=== PATIENT | female | born 1960 | race Caucasian/White ===

== ENCOUNTER 2017-09-07 11:32 | Inpatient (IN) ==
[2017-09-07] MEDS ORDERED: Nitroglycerin 0.4 MG TAB.SUBL SL ONE (11:54)
--- NOTE | 2017-09-07 11:58 | Emergency Department Note ---
Disposition Clinical Impression: ST elevation myocardial infarction (STEMI) of anterior wall Disposition: Admitted As Inpatient Condition: Critical Time of Disposition: 12:39 General Adult HPI - General Chief complaint: ED Cardiac Arrest/CPR Stated complaint: chest pain Time Seen by Provider: 09/07/17 11:51 Source: patient Limitations: no limitations Nursing Notes Reviewed: Yes Vital Signs Reviewed: Yes - History of Present Illness HPI Narrative: Chest discomfort which has been present for the last 1 week and today started at home at 7:30 and has been constant and is still present but improved and it is not exertional but does radiate to the neck and teeth. Was seen at the cardiology office today and sent here because of concerning EKG changes. No diaphoresis or dyspnea. Does not radiate to the back. No pleuritic aspect. No pain or swelling of the lower extremities. She did have a cardiac catheterization several years ago which was negative. She denies any respiratory symptoms, blood in the urine or stool. Social history: No smoking. Family history: Positive for heart disease in parents. 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 Pain Scale: 5 - Related Data Home Medications Medication Instructions Recorded Confirmed Escitalopram [Lexapro] 10 mg PO DAILY 02/15/16 06/05/17 Insulin ASPART [Novolog] 15 unit SQ TIDAC 02/15/16 06/05/17 Insulin Glargine,Hum.rec.anlog 100 unit SQ HS 02/15/16 06/05/17 [Lantus Solostar] BuPROPion [Wellbutrin] 100 mg PO DAILY 10/30/16 06/05/17 Fenugreek Seed Extract [Fenugreek] 500 mg PO DAILY 10/30/16 06/05/17 HYDROcodone/Acet 5/325 mg [[place] 1 tab PO Q6H PRN 10/30/16 06/05/17 5-325 mg] Candesartan Cilexetil [Atacand] 8 mg PO DAILY 12/06/16 06/05/17 Empagliflozin [Jardiance] 1 tab PO QDPC 02/15/17 06/05/17 ARIPiprazole [Abilify] 5 mg PO DAILY 09/07/17 09/07/17 ARIPiprazole [Abilify] 5 mg PO DAILY 09/07/17 09/07/17 Acetaminophen/Butalbital/Caffe 1 tab PO BID PRN 09/07/17 09/07/17 [Fioricet] Buspirone HCl [Buspar] 10 mg PO DAILY 09/07/17 09/07/17 hydroCHLOROthiazide 50 mg PO DAILY 09/07/17 09/07/17 [Hydrochlorothiazide] Previous Rx's Medication Instructions Recorded Cyclobenzaprine HCl 5 mg PO TID PRN #30 tablet 02/15/16 Ibuprofen [Motrin] 600 mg PO Q6-8H PRN #30 tab 02/15/16 Allergies Allergy/AdvReac Type Severity Reaction Status Date / Time Amoxicillin [From Amoxil] Allergy Rash Verified 06/05/17 14:38 clavulanic acid Allergy Hives Verified 06/05/17 14:38 [From Augmentin] iodine Allergy Rash Verified 06/05/17 14:38 pentazocine [From Talwin] Allergy Rash Verified 06/05/17 14:38 Review of Systems: Constitutional: No fever Vision: No blurred vision ENT: No rhinorrhea Respiratory: No cough Allergic: No allergies : No blood in urine GI: No blood in stool Hematologic: No bruising Dermatologic: No skin rash Musculoskeletal: No pain in the extremities Neuro: No numbness of the extremities Past Medical History - Past Medical History Medical history: Reports: diabetes, hypertension, other Surgical history: Reports: non-contributory - Social History Smoking Status: Never smoker Smokeless Tobacco Status: No Alcohol use: Reports: unknown Drug use: Reports: none Physical Exam CONSTITUTIONAL: Well-appearing; well-nourished; A&O X 3, in no apparent distress HEAD: Normocephalic; atraumatic EYES: PERRL, no scleral icterus NOSE: The nose is normal in appearance without rhinorrhea NECK: No JVD or distended neck veins RESP: Normal chest excursion with respiration; breath sounds clear and equal bilaterally; no wheezes, rhonchi, or rales CARD: Regular rhythm, without murmurs, rub or gallop ABD: Non-distended; non-tender, soft, without rigidity, rebound or guarding,no pulsatile mass CHEST: No pain with palpation SKIN: Normal for age and race; warm and dry without diaphoresis ; no apparent lesions EXTREMITIES: Pulses are 2 plus and equal times 4 extremities, no peripheral edema or calf muscle pain - General Limitations: no limitations General appearance: alert, in no apparent distress Course Vital Signs Temperature 98.2 F 09/07/17 11:44 Pulse Rate 94 09/07/17 11:44 Respiratory Rate 16 09/07/17 11:44 Blood Pressure 173/86 09/07/17 11:44 O2 Sat by Pulse Oximetry 98 09/07/17 11:44 Temperature 98.2 F 09/07/17 11:44 Pulse Rate 96 09/07/17 12:24 Respiratory Rate 18 09/07/17 12:24 Blood Pressure 136/87 09/07/17 12:24 O2 Sat by Pulse Oximetry 98 09/07/17 12:24 Oxygen Delivery Oxygen Delivery Room Air Medical Decision Making - MDM Narrative Medical decision making narrative: I did review the EKG which does show normal sinus rhythm and evidence of anterior ST elevation as well as lateral ST elevation. I did compare the EKG from the cardiology office which showed similar findings. The rate on today's EKG in the emergency Department is 99 beats per minute. Patient does have labs ordered, nitroglycerin, she did take an aspirin today, interventional cardiology was paged. [id number] I did speak with Dr. Gamble at 12:00 and they did come down emergently to see the patient and the patient will be taken emergently to [facility] admitted to the hospital. I did start polenta as well as heparin per protocol and oxygen per their recommendations. The patient's troponin has returned and his significant elevated and I did review the other labs also. I have seen the patient on a second occasion. She is stable and is chest pain-free at this time. [id number] - Medical Records Medical records reviewed: Yes I reviewed the patient's medical records. - Lab Data Lab results reviewed: Yes I reviewed the patient's lab results. Result diagrams: 09/07/17 11:54 09/07/17 11:54 Lab Results 09/07/17 09/07/17 09/07/17 Range/Units 11:54 11:54 11:54 WBC 10.4 (4.3-11.1) K/mcL RBC 4.13 (3.82-4.97) M/mcL Hgb 11.9 (11.5-15.4) g/dL Hct 36.1 (35.3-44.9) % MCV 87.4 (83.0-100.0) fL MCH 28.8 (28.0-33.3) pg MCHC 33.0 (31.6-35.5) g/dL RDW 14.0 (11.5-14.5) % Plt Count 314 (140-400) K/mcL MPV 10.5 (9.4-12.4) fL Immature Gran % 0.5 (0-4) % Seg Neutrophils % 65.3 % Lymphocytes % 22.0 % Monocytes % 9.1 % Eosinophils % 2.6 % Basophils % 0.5 % Neutrophils # 6.8 (1.6-8.9) K/mcL Lymphocytes # 2.3 (0.6-4.6) K/mcL Monocytes # 0.9 (0.0-1.3) K/mcL Eosinophils # 0.3 (0.0-0.6) K/mcL Basophils # 0.1 (0.0-0.2) K/mcL PT 11.3 (9.4-12.1) Seconds INR 1.1 APTT 30.5 (26.0-36.0) Seconds Sodium 133 L (136-145) mEq/L Potassium 3.8 (3.5-4.5) mEq/L Chloride 96 L (98-109) mEq/L Carbon Dioxide 26 (19-29) mEq/L BUN 18 (7-20) mg/dL Creatinine 1.03 (0.57-1.11) mg/dL Est GFR ( Amer) > 60 (> 60) Est GFR (Non-Af Amer) 55 L (> 60) BUN/Creatinine Ratio 17 (6-26) Glucose 361 H (70-99) mg/dL Calculated Osmolality 292 (280-300) Calcium 9.5 (8.6-10.8) mg/dL Troponin I (0-0.03) ng/mL 09/07/17 Range/Units 11:54 WBC (4.3-11.1) K/mcL RBC (3.82-4.97) M/mcL Hgb (11.5-15.4) g/dL Hct (35.3-44.9) % MCV (83.0-100.0) fL MCH (28.0-33.3) pg MCHC (31.6-35.5) g/dL RDW (11.5-14.5) % Plt Count (140-400) K/mcL MPV (9.4-12.4) fL Immature Gran % (0-4) % Seg Neutrophils % % Lymphocytes % % Monocytes % % Eosinophils % % Basophils % % Neutrophils # (1.6-8.9) K/mcL Lymphocytes # (0.6-4.6) K/mcL Monocytes # (0.0-1.3) K/mcL Eosinophils # (0.0-0.6) K/mcL Basophils # (0.0-0.2) K/mcL PT (9.4-12.1) Seconds INR APTT (26.0-36.0) Seconds Sodium (136-145) mEq/L Potassium (3.5-4.5) mEq/L Chloride (98-109) mEq/L Carbon Dioxide (19-29) mEq/L BUN (7-20) mg/dL Creatinine (0.57-1.11) mg/dL Est GFR ( Amer) (> 60) Est GFR (Non-Af Amer) (> 60) BUN/Creatinine Ratio (6-26) Glucose (70-99) mg/dL Calculated Osmolality (280-300) Calcium (8.6-10.8) mg/dL Troponin I 12.16 H* (0-0.03) ng/mL - Radiology Data Radiology results reviewed: Yes I reviewed the patient's radiology results. Critical Care Time Critical Care Time: No
[2017-09-07 12:04] LABS: Basophils # 0.1 K/mcL (0.0-0.2); Basophils % 0.5 %; Eosinophils # 0.3 K/mcL (0.0-0.6); Eosinophils % 2.6 %; Hematocrit 36.1 % (35.3-44.9); Hemoglobin 11.9 g/dL (11.5-15.4); Immature Granulocytes % 0.5 % (0-4); Lymphocytes # 2.3 K/mcL (0.6-4.6); Mean Corpuscular Hemoglobin 28.8 pg (28.0-33.3); Mean Corpuscular Volume 87.4 fL (83.0-100.0); Mean Platelet Volume 10.5 fL (9.4-12.4); Monocytes # 0.9 K/mcL (0.0-1.3); Monocytes % 9.1 %; Neutrophils # 6.8 K/mcL (1.6-8.9); Platelet Count 314 K/mcL (140-400); Red Blood Count 4.13 M/mcL (3.82-4.97); Segmented Neutrophils % 65.3 %
[2017-09-07 12:11] LABS: INR 1.1; Prothrombin Time 11.3 Seconds (9.4-12.1)
[2017-09-07 12:14] LABS: Activated Partial Thrombo Time 30.5 Seconds (26.0-36.0)
[2017-09-07 12:17] LABS: BUN/Creatinine Ratio 17 (6-26); Blood Urea Nitrogen 18 mg/dL (7-20); Calcium 9.5 mg/dL (8.6-10.8); Carbon Dioxide 26 mEq/L (19-29); Chloride 96 mEq/L (98-109); Glucose 361 mg/dL (70-99); Osmolality,Calculated 292 (280-300); Potassium 3.8 mEq/L (3.5-4.5); Sodium 133 mEq/L (136-145); eGFR For African Americans > 60 (> 60); eGFR For Non-African Americans 55 (> 60)
[2017-09-07] MEDS ORDERED: *HR* Ticagrelor 90 MG TABLET PO ONE (12:33)
[2017-09-07] MEDS ORDERED: *HR* Heparin 5,000 UNIT/ML VIAL IVP ONE (12:34)
[2017-09-07] MEDS ORDERED: *HR* Heparin 5,000 UNIT/ML VIAL IVP PRN (12:34)
[2017-09-07] MEDS ORDERED: Heparin 25,000 UNIT/500 ML D5W 25,000 UNIT/500 ML BAG IVC SCH (12:45)
[2017-09-07] MEDS ORDERED: Heparin 1,000 UNITS/500 mL NS 500 ML ONE (12:46)
[2017-09-07] MEDS ORDERED: 0.9 % Sodium Chloride 1,000 ML ONE ×2 (12:46→13:10)
[2017-09-07] MEDS ORDERED: *HR* Heparin 10,000 UNIT/10 ML VIAL ONE (12:46)
[2017-09-07] MEDS ORDERED: Nitroglycerin 1,000 MCG/10 ML VIAL IV ONE (12:48)
--- NOTE | 2017-09-07 12:57 | Cardiology History & Physical ---
Date of Encounter: 09/07/17 Time of Encounter: 12:30 Assessment and Plan (1) Acute ID Current Visit: Yes Status: Acute Per Cardiology: Hx of abnormal nuclear stress test August 2013 with small, mild fixed mid anterior septal defect and small mild distal anterior/mid anterior lateral defects. Catheterization from September 2013 showed normal coronary angiogram with EF 55%. Presents from PCP office with CP and concerns of ECG changes. CP free currently- - s/p SL NTG. ECG reviewed with Dr. Gamble and Dr. Fair, concerning for acute ID. Trop. noted to be 12.16. lab instructor team activated for urgent LHC. Brilinta load of 180mg PO x 1 now given, Hep gtt. per ACS protocol started, and NC 2L O2 applied. Will check echo. Further recs after cath and echo. All questions answered. Patient agreeable to catheterization. CR c/s placed. The assessment and plan as outlined above was discussed with the patient and/or family members who expressed understanding and agreement. All questions were answered. Qualifiers: Myocardial infarction ST status: non-ST elevation myocardial infarction Qualified Code(s): I21.4 - Non-ST elevation (NSTEMI) myocardial infarction History of Present Illness Chief complaint: CP HPI: Ms. Aayush Kaufman is a 57 year old female with a relevant past medical history of DM 2 (she reports poorly controlled), hypertension, hyperlipidemia. Reports past history of nicotine abuse of smoking about one pack per day for 8 years, quit smoking 23 years ago. Previously seen by cardiology Dr. Priti See October 2016. Has history of abnormal nuclear stress test August 2013 with subsequent left heart catheterization September 2013 showing coronary arteries angiographically normal. Cardiology asked to evaluate patient in ER today for concerns of chest pain and ECG changes. Patient reports intermittently over the past week at rest midsternal/epigastric to chest pressure and tightness. Reports also has been having bilateral jaw pain. She reports she saw her PCP and started on pain medicine and stomach medicine with minimal improvement. Saw PCP today and sent to ER for concerns of CP and ECG changes. She reports shortness of breath at rest and with exertion remains at baseline. She does report increase in overall fatigue. Currently on exam chest pain-free-- just received 3rd SL NTG tablet. Past Med Surg Social Fam HX - Past Medical History Attestation: Yes The following information was validated with the patient. Source: patient, old records reviewed Medical history: diabetes, hypertension, other - Past Surgical History Surgical History: non-contributory - Social History Smoking Status: Former smoker Smokeless Tobacco Status: No Alcohol use: unknown Drug use: none Medications and Allergies Cyclobenzaprine HCl 5 mg PO TID PRN #30 tablet 02/15/16 [Rx] Escitalopram [Lexapro] 10 mg PO DAILY 02/15/16 [History] Ibuprofen [Motrin] 600 mg PO Q6-8H PRN #30 tab 02/15/16 [Rx] Insulin ASPART [Novolog] 15 unit SQ TIDAC 02/15/16 [History] Insulin Glargine,Hum.rec.anlog [Lantus Solostar] 80 unit SQ HS 02/15/16 [History ] BuPROPion [Wellbutrin] 100 mg PO DAILY 10/30/16 [History] Fenugreek Seed Extract [Fenugreek] 500 mg PO DAILY 10/30/16 [History] HYDROcodone/Acet 5/325 mg [[place] 5-325 mg] 1 tab PO Q6H PRN 10/30/16 [History] Candesartan Cilexetil [Atacand] 8 mg PO DAILY 12/06/16 [History] Empagliflozin [Jardiance] 1 tab PO QDPC 02/15/17 [History] ARIPiprazole [Abilify] 5 mg PO DAILY 09/07/17 [History] ARIPiprazole [Abilify] 5 mg PO DAILY 09/07/17 [History] Acetaminophen/Butalbital/Caffe [Fioricet] 1 tab PO BID PRN 09/07/17 [History] Buspirone HCl [Buspar] 10 mg PO DAILY 09/07/17 [History] hydroCHLOROthiazide [Hydrochlorothiazide] 50 mg PO DAILY 09/07/17 [History] 3 Allergy/AdvReac Type Severity Reaction Status Date / Time Amoxicillin [From Amoxil] Allergy Rash Verified 06/05/17 14:38 clavulanic acid Allergy Hives Verified 06/05/17 14:38 [From Augmentin] iodine Allergy Rash Verified 06/05/17 14:38 pentazocine [From Talwin] Allergy Rash Verified 06/05/17 14:38 All Systems Review: A 10-system review of systems was performed and is negative for pertinent findings except as documented above in the HPI. - Constitutional Constitutional: fatigue - Cardiovascular Cardiovascular: as per HPI, chest pain at rest, dyspnea at rest, dyspnea on exertion, other (bilateral jaw pain) Physical Examination Vital Signs, Last 4 Hours Temp Pulse Resp BP Pulse Ox 09/07/17 12:24 96 18 136/87 98 09/07/17 11:44 98.2 F 94 16 173/86 98 General: Conversant, No Apparent Distress HEENT: Atraumatic, Normocephaly, Mucus Membranes Moist Neck: No JVD, Normal carotid pulses Cardiac: Reg Rate and Rhythm, Normal S1 and S2, No Murmur Lungs: Normal Breath Sounds, No Wheeze, Rales, Rhonchi Neuro: Alert and responsive, No focal deficits noted Abdomen: Soft, Non-Tender, Other (obese) Skin: No rashes noted on visualized skin Musculoskeletal: No Chest Wall Tenderness Extremities: No Clubbing, No Cyanosis, No Edema, Normal Pulses Results 09/07/17 11:54 09/07/17 11:54 Lab Results Laboratory Tests 09/07/17 09/07/17 09/07/17 11:54 11:54 11:54 WBC 10.4 Hgb 11.9 Hct 36.1 Plt Count 314 INR 1.1 Creatinine 1.03 Est GFR (Non-Af Amer) 55 L Troponin I 09/07/17 11:54 WBC Hgb Hct Plt Count INR Creatinine Est GFR (Non-Af Amer) Troponin I 12.16 H* Active Medications Heparin Sodium (Porcine) (Heparin) 2,000 unit IVP Q6H PRN PRN Reason: SEE COMMENTS Stop: 03/09/18 12:35 Heparin Sodium/Dextrose (Heparin 25,000 Unit/500 Ml D5w) 25,000 unit in 500 mls @ 19.878 mls/hr IVC .Q24H CATHIE; 8.8 UNIT/KG/HR PRN Reason: Protocol Stop: 03/09/18 12:46 Last Admin: 09/07/17 12:44 Dose: 12 unit/kg/hr, 27.107 mls/hr - Imaging and Cardiology Stress Test: report reviewed Echo: pending Cardiac cath: pending, report reviewed - EKG Interpretation EKG results cardiology: personally reviewed (reviewed with Dr. Gamble and Dr. Fair)
[2017-09-07] MEDS ORDERED: *HR* Midazolam HCl 2 MG/2 ML VIAL ONE ×3 (13:09→13:58)
--- NOTE | 2017-09-07 13:13 | Pre-Sedation Evaluation ---
Pre-sedation evaluation - Pre-sedation checklist Date of procedure: 09/07/17 Recent Vitals: Last Vital Signs Temp 98.2 F 09/07/17 11:44 Pulse 96 09/07/17 12:24 Resp 18 09/07/17 12:24 BP 136/87 09/07/17 12:24 Pulse Ox 98 09/07/17 12:24 H&P (including ROS) documented in medical record: Yes Previous reaction to sedatives/anesthetics: No Dietary Status: No solid food in preceding 4 hrs and no liquid in preceding 2 hrs Airway Assessment: Patient can open mouth completely, TMJ function normal Dentition: No loose teeth or bridges Possible difficult airway: No ASA Classification *see protocol: CLASS IV-Severe systemic disease/constant threat to pt's life Plan of Care: Pt appropriate candidate for procedure/moderate/conscious sedation , Risks/benefits of procedure/sedation discussed w/ patient/family, If not NPO; Risk of intake outweiged by necessity to perform procedure
[2017-09-07] MEDS ORDERED: Naloxone 0.4 MG/ML INJ IVP PRN (13:33)
[2017-09-07] MEDS ORDERED: Acetaminophen 325 MG TABLET PO PRN (14:06)
--- NOTE | 2017-09-07 14:26 | Invasive Diagnostic Lab Proc ---
Name: Chayo Benitez Date of Study: 09/07/2017 Date: 1960 Ht: 64.2in Medical Record#: [id number] Age: 57 Wt: 248.90lb Gender: Female BSA: 2.15 Order #: [id number] BMI: 42.49 Physicians Procedure Physician: Isidoro Gamble DO Referring MD: Oumar Wood M.D. Referring MD: Staff Name Position Time In Kiersten Anderson RN Monitor 01:14 PM Lillian Gomez RT (R) Scrub 01:14 PM Alize Collins RN Dynamometer Tester 01:14 PM Indications Indication Non-Stemi Procedures Performed Procedure L HRT ARTERY/VENTRICLE ANGIO PRQ CARD OCTAVIANO STENT W/ANGIO 1 VSL Pre-Procedure Checklist Informed consent is complete signed and on chart. H&P is on chart. ID band is on and ID verified with patient. Patient NPO for procedure The procedure was described for the patient and questions were answered. Blood Pressure: 137/101 ECG is on chart. Rhythm: NSR Plan of Care Patient will tolerate the procedure without complications. Adequate level of comfort will be maintained. Hemodynamics will remain stable Patient will recover from procedure without complications. Respiratory function will be maintained. Cardiac rhythm will remain stable. Patient temperature will be maintained. Patient and/or family have verbalized understanding of the procedure. Patient Education Chief Complaint/Reason for Test: Cardiac Cath Developmental Category: Adult (18-64 years) Developmentally Appropriate for Age: Yes Learning Barriers: None Education Needs: Procedure Education Method: Verbal Information Taught: Cardiac Cath Educational Evaluation: Able to repeat information Intravenous Access Time IV Size Location DC'd Fluid/Drip Rate Units RN 01:11 PM 20g 1 1/" Patent On Arrival Lt Antecubital 0.9NaCl 25 ml/hr Alize Collins RN Allergies iodine clavulanic acid Amoxicillin pentazocine IODINE,AMOXICILLIN,AUGMENTIN Vital Signs Time BP (mmHg) HR (bpm) O2 Sat. RR (bpm) LOC 01:13 PM 137 / 101 98 100 % 15 5 = Fully awake and oriented or at pre-proc level 01:15 PM / % 5 = Fully awake and oriented or at pre-proc level 01:15 PM / % 4 = Oriented but drowsy 01:31 PM / % 4 = Oriented but drowsy 01:46 PM / % 5 = Fully awake and oriented or at pre-proc level 01:48 PM 138 / 75 91 100 % 19 01:53 PM 130 / 76 90 100 % 23 01:58 PM 134 / 82 92 100 % 15 02:03 PM 130 / 80 92 100 % 14 02:08 PM 134 / 83 93 100 % 17 01:11 PM 137 / 101 97 100 % 28 01:16 PM 57 / 32 93 100 % 18 01:18 PM 141 / 84 95 100 % 8 01:23 PM 140 / 90 93 100 % 13 01:28 PM 142 / 78 94 100 % 30 01:33 PM 128 / 79 95 100 % 23 01:38 PM 123 / 71 93 100 % 18 01:43 PM 121 / 70 90 100 % 12 02:01 PM / % 5 = Fully awake and oriented or at pre-proc level Procedural Medications Time Medication Dose Units Method Given By 01:14 PM Oxygen 2 L/min nasal cannula Alize Collins RN 01:14 PM Versed 2 mg Intravenous Alize Collins RN 01:15 PM Benadryl 50 mg Intravenous Alize Collins RN 01:20 PM Versed 1 mg Intravenous Alize Collins RN 01:21 PM Lidocaine 2% 10 ml Subcutaneous Isidoro Gamble, DO 01:27 PM Lidocaine 2% 9 ml Subcutaneous Isidoro Gamble DO 01:36 PM Versed 1 mg Intravenous Alize Collins RN 01:47 PM Heparin 3000 units Intravenous Alize Collins RN 01:52 PM Nitroglycerin 100 mcg Intracoronary Isidoro Gamble DO 01:58 PM Versed 1 mg Intravenous Alize Collins RN ASA Classification: CLASS IV- Severe systemic that is constant threat to patient's life Trey Score Preprocedure Postprocedure Activity 2- Moves 4 extremities sustained head lift Activity 2- Moves 4 extremities sustained head lift Circulation 2- SBP +/= 20 points of pre-anesthetic level Circulation 2- SBP +/= 20 points of pre-anesthetic level Consciousness 2- Awake and alert oriented x 3 Consciousness 2- Awake and alert oriented x 3 O2 Saturation 2- Able to maintain O2 satruation of 92% on room air O2 Saturation 2- Able to maintain O2 satruation of 92% on room air Respiratory 2- Able to deep breathe and cough well Respiratory 2- Able to deep breathe and cough well Total Score 10 Total Score 10 Contrast Agent: Isovue Diagnostic Contrast: 190 ml Total Contrast: 190 ml Fluoro Dose: 583 mGy Activated Clotting Time Time Seconds to Clot 01:56 PM 186 Procedure Log Time Note Enter By 01:10 PM CathStat 01:10 PM Vitals capture started with the following parameters, Patient=Adult, Interval=5 min, Initial Azcazujf=392 mmHg, Deflation Rate=5 mmHg, Cuff placed on Right Arm 01:10 PM Recorded ECG: HR=97 Condition=Condition 1 01:11 PM HR=97 bpm, TTCP=102/101 mmhg, EzU0=810.0 %, Resp=28 B/min, Comment=NSR 01:13 PM Pt arrived to soap slabber 2 at 13:13 [facility] 01:13 PM Physician arrived 13:13 01:13 PM Meet and greet completed 01:13 PM Sign in performed according to hospital policy. mm 01:13 PM Procedure start [facility]:13 [facility] Kiersten Anderson RN Position: Monitor Time in: 13:14 01:14 PM Lillian Gomez RT (R) Position: Scrub Time in: 13:14 01:14 PM Alize Collins RN Position: Dynamometer Tester Time in: 13:14 [place] 01:14 PM Patient charges- Angio tray pack, Navilyst 3mm J, Pulse Oximetry and ACIST tubing and transducer 01:14 PM Case Delayed No mm 01:14 PM Hair removed from procedure site in procedure lab using clippers. Bilateral groin prepped with Chloraprep by Lillian Gomez RT (R), safety strap applied then patient was draped. Skin intact. [place] 01:14 PM Time: 13:14 Oxygen on at 2 L/min per nasal cannula by Alize Collins RN winnie 01:15 PM Time: 13:14 Versed 2 mg Intravenous Given by Alize Collins RN :15 PM Time: 13:15 Benadryl 50 mg Intravenous Given by Alize Collins RN :15 PM Time: 13:15 Patient comfortable and pain free: Yes winnie :15 PM Time: 13:15LOC: 5 = Fully awake and oriented or at pre-proc level winnie 01:15 PM Clinical Presentation: Non-STEMI winnie 01:16 PM HR=93 bpm, NIBP=57/32 mmhg, MyM1=654.0 %, Resp=18 B/min, Comment=NSR 01:16 PM NIBP STAT measurement started. 01:17 PM Vitals capture stopped. 01:17 PM Vitals capture started with the following parameters, Patient=Adult, Interval=5 min, Initial Reknoqgd=634 mmHg, Deflation Rate=5 mmHg, Cuff placed on Right Arm 01:18 PM ASA Class CLASS IV- Severe systemic that is constant threat to patient's life tswinnie 01:18 PM HR=95 bpm, KVJY=786/84 mmhg, OiQ2=170.0 %, Resp=8 B/min, Comment=NSR 01:19 PM Pressure channel 1 zeroed. 01:20 PM Time out performed according to hospital policy winnie :21 PM Time: 13:20 Versed 1 mg Intravenous Given by Alize Collins RN winnie :21 PM Time: 13:21 10 ml Lidocaine 2% to right groin Subcutaneous Given by DO devan Pineda 01:23 PM HR=93 bpm, WJTG=608/90 mmhg, IpE5=120.0 %, Resp=13 B/min, Comment=NSR 01:24 PM Unsuccessful access attempt #10 into the right Femoral artery. Manual pressure applied to achieve hemostasis.. devan 01:25 PM Micro-Introducer Kit utilized for sheath placement winnie :27 PM Time: 13:27 9 ml Lidocaine 2% to right groin Subcutaneous Given by DO devan Pineda 01:28 PM HR=94 bpm, TMFD=833/78 mmhg, ObW8=447.0 %, Resp=30 B/min, Comment=NSR 01:31 PM Time: 13:15LOC: 4 = Oriented but drowsy tswinnie :31 PM Time: 13:15 Patient comfortable and pain free: Yes devan 01:32 PM Access obtained by percutaneous puncture. 5Fr 10cm Terumo Wooster sheath placed in right Femoral vein. [id number] devan 01:33 PM HR=95 bpm, MMLC=122/79 mmhg, IyN5=391.0 %, Resp=23 B/min, Comment=NSR 01:36 PM Time: 13:36 Versed 1 mg Intravenous Given by Alize Collins RN 01:38 PM HR=93 bpm, BVJK=231/71 mmhg, HuX7=000.0 %, Resp=18 B/min, Comment=NSR 01:40 PM Access obtained by percutaneous puncture. 6Fr 10cm Terumo Wooster sheath placed in right Femoral artery. [id number] oumm 01:40 PM 6Fr FR 4 catheter inserted over the wire [facility] 01:40 PM 0.035 145cm Navilyst 3mmJ wire [id number] oumm 01:40 PM Recorded Pressure: LV, HR=96, Condition=Condition 1 (Left Ventricle) LV 128/10/11 01:40 PM Catheter selectively placed in left ventricle tsoumm 01:40 PM Recorded Pressure: LV, Ao, HR=93, Condition=Condition 1 (Left Ventricle) LV 124/4/8, (Aorta) Ao 133/48/91 01:41 PM left ventricle hand injected tsoumm 01:41 PM Recorded Pressure: Ao, HR=93, Condition=Condition 1 (Aorta) Ao 96/68/79 01:41 PM RCA angiography performed in multiple views. mm 01:41 PM Catheter removed 01:42 PM 6Fr JL4 Runway guide catheter was used to cannulate the PCI vessel successfully. reused? No mm 01:42 PM LCA angiography performed in multiple views. mm 01:42 PM Recorded Pressure: Ao, HR=92, Condition=Condition 1 (Aorta) Ao 128/68/94 01:43 PM HR=90 bpm, ZUKW=549/70 mmhg, YjH0=072.0 %, Resp=12 B/min, Comment=NSR 01:46 PM Time: 13:31 Patient comfortable and pain free: Yes mm:46 PM Time: 13:31LOC: 4 = Oriented but drowsy tsoummers 01:46 PM Recorded Pressure: Ao, HR=93, Condition=Condition 1 (Aorta) Ao 125/71/95 01:47 PM Catheter removed :47 PM PCI Status Emergency 01:47 PM PCI Indication: PCI for high risk Non-STEMI or unstable angina :47 PM PCI lesion in Mid LAD. Pre Stenosis: 99 Pre HERBERTH Flow: 3: Complete and Brisk Flow/Perfusion :47 PM Time: 13:47 Heparin 3000 units Intravenous Given by Alize Collins RN 01:47 PM PCI lesion in Mid LAD. 01:48 PM HR=91 bpm, WWRY=315/75 mmhg, YvF1=624.0 %, Resp=19 B/min, Comment=NSR 01:48 PM .014 ChoICE PT Extra Support 300cm guide wire across target lesion- successful. reused? No :48 PM Inflation device was opened. 01:48 PM Recorded Pressure: Ao, HR=92, Condition=Condition 1 (Aorta) Ao 126/73/96 01:49 PM 3.5mm x 20mm Synergy drug-eluting stent across target lesion- successful Lot #[id number] 01:51 PM Stent deployed @ 16 clem for 21 seconds 01:52 PM Stent delivery system removed intact. 01:52 PM Time: 13:52 Nitroglycerin 100 mcg Intracoronary Given by Isidoro Gamble DO 01:53 PM HR=90 bpm, OVUX=624/76 mmhg, NaO8=072.0 %, Resp=23 B/min, Comment=NSR 01:54 PM Guide wire removed intact. 01:54 PM Recorded Pressure: Ao, HR=86, Condition=Condition 1 (Aorta) Ao 121/67/89 01:54 PM Bolus angio of right femoral hand injected 01:55 PM Guide catheter removed intact. 01:55 PM Coronary Dominance: right [facility] 01:55 PM Mid/Distal Left Anterior Descending Coronary Artery and diagonal branches with 99% stenosis. 01:56 PM Procedure completed at 13:56 01:57 PM Sign out completed: Radiation Dose 582.61 mGy Fluoro Time: 3.4 Isovue 370 - 200ml contrast ml given by Isidoro Gamble DO. Complications: NoneCardiac Rehab Consult needed: YesConfirmed administered medications: Yes oumm 01:57 PM Isovue 370 - 200ml,1 Bottle(s) used. mm 01:58 PM Time: 13:58 Versed 1 mg Intravenous Given by Alize Collins RN oumm 01:58 PM HR=92 bpm, IAAK=982/82 mmhg, FvA9=912.0 %, Resp=15 B/min, Comment=NSR 01:59 PM Lesion found in 1st Marginal. Pre Stenosis: 50 Pre HERBERTH Flow: 3: Complete and Brisk Flow/Perfusion tsoumm 01:59 PM Circumflex, Obtuse Marginal, Left Posterior Descending, and Left Posterolateral Coronary Arteries with 50 % stenosis. tsoumm 02:01 PM Time: 13:46LOC: 5 = Fully awake and oriented or at pre-proc level tsoumm 02:01 PM Time: 13:46 Patient comfortable and pain free: Yes tsoumm 02:01 PM Arterial sheath pulled, Mynx closure device used and was Successful [id number] S/N. tsoumm 02:02 PM Venous sheath pulled using manual compression and for 15 minutes by Lillian Gomez RT (R) tsoummers 02:03 PM HR=92 bpm, QRMZ=693/80 mmhg, WiS4=680.0 %, Resp=14 B/min, Comment=NSR 02:03 PM Estimated Blood Loss: minimal tsoummers 02:03 PM Post ECG NSR tsoummers 02:03 PM Post Blood Pressure 130/80 tsoummers 02:04 PM 14:04 Post Pulses Bilateral DP & PT 2+ tsoummers 02:04 PM Information taught Cardiac Cath, PCI, and Mynx tsoummers 02:05 PM Education needs Procedure, Plan of Care, and Safe & Effective Use of Medications tsoummers 02:05 PM Learning barriers :None tsoummers 02:05 PM Education Methods Verbal tsoummers 02:05 PM Site status No bleeding/hematoma - Rt Groin as reported by Lillian Gomez RT (R) at 14:05 tsoummers 02:05 PM Opsite applied tsoummers 02:08 PM HR=93 bpm, OKXZ=404/83 mmhg, OpD6=617.0 %, Resp=17 B/min, Comment=NSR 02:13 PM Report given to Debi IYER Pt taken to ICU Room #10. 14:12 tsoummers 02:16 PM Plavix, Effient or Brilinta given Yes tsoummers 02:16 PM Delay to floor No tsoummers 02:16 PM Patient out of room: 14:16 tsoummers 02:16 PM Family placed in consult room. tsoummers 02:16 PM Time: 14:01 Patient comfortable and pain free: Yes tsoummers 02:16 PM Time: 14:01LOC: 5 = Fully awake and oriented or at pre-proc level tsoummers 02:16 PM Complications: None oummers 02:17 PM Fluoro Time: 3.4 oummers 02:17 PM Isovue 370 - 200ml contrast 190 ml given by Isidoro Gamble DO. tsoummers 02:17 PM Radiation D[facility] 582.61 [facility] 02:18 PM At 13:56 the ACT was 186 seconds. [facility] Complications Complication None Hemodynamics Pressures Site Systolic/A Wave Diastolic/V Wave Mean LV 128 10 11 LV 124 4 8 AO 133 48 91 AO 96 68 79 AO 128 68 94 AO 125 71 95 AO 126 73 96 AO 121 67 89 Post Procedure Information Blood Pressure: 130/80 mmHg Rhythm: NSR Post procedural instructions were given Closure Device Time Device Success/Fail 09/07/2017 2:07:00 PM MynxGrip Successful Site Checks Time Location Status Staff Sheath In? Note 02:05 PM Rt Groin No bleeding/hematoma Lillian Gomez RT (R) Pulses Time Site Pre-Procedure Post-Procedure Note 09/07/2017 1:13:00 PM Bilateral DP & PT 2+ 2:04:00 PM Bilateral DP & PT 2+ Updated by Alize Collins RN on 09/07/2017 2:20:24 PM electronically signed on 09/07/2017 2:21:36 PM with status of Final
[2017-09-07] MEDS: Aspirin 81 MG TAB.CHEW PO SCH (15:28)
--- NOTE | 2017-09-07 16:51 | Electrocardiograph Report ---
[address] [place], [place] [address] Test Date: 2017-09-07 Pat Name: Chayo Looney [facility] Department: 103 Room: 10 Gender: F Manager Disaster Recovery: AMY : 1960 Requested By: Alden Lima Order Number: [id number] Reading MD: Marietta Block Measurements Intervals [place] Rate: 99 P: 54 TN: 167 QRS: -41 QRSD: 87 T: 65 QT: 318 QTc: 374 Interpretive Statements SINUS RHYTHM LEFT AXIS DEVIATION MODERATE VOLTAGE CRITERIA FOR LVH, CONSIDER NORMAL VARIANT POSSIBLE RECENT ANTEROSEPTAL MYOCARDIAL INFARCTION [40+ ms Q WAVE IN V1-V4], POSSIBLY ACUTE ACUTE DE Electronically Signed On 09-07-2017 16:49:33 EST by Marietta Block
[2017-09-07] MEDS ORDERED: Perflutren Lipid Microsphere 1.3 ML in 0.9 % Sodium Chloride 8.7 ML IVP ONE (18:50)
[2017-09-07] MEDS ORDERED: Perflutren Lipid Microsphere 2 ML VIAL ONE (18:53)
[2017-09-07] MEDS: 0.9 % Sodium Chloride 1,000 ML IVC SCH (20:11)
[2017-09-07] MEDS: *HR* Ticagrelor 90 MG TABLET PO SCH (20:58)
[2017-09-07] MEDS: Insulin LISPRO 300 UNITS/3 ML VIAL SQ SCH (20:58)
[2017-09-07] MEDS: *HR* HYDROcodone/Acet 5/325 mg TABLET PO PRN (22:36)
[2017-09-08] MEDS: 0.9 % Sodium Chloride 1,000 ML IVC SCH (05:56)
[2017-09-08 06:21] LABS: BUN/Creatinine Ratio 20 (6-26); Blood Urea Nitrogen 12 mg/dL (7-20); Calcium 8.8 mg/dL (8.6-10.8); Carbon Dioxide 25 mEq/L (19-29); Chloride 105 mEq/L (98-109); Glucose 195 mg/dL (70-99); Osmolality,Calculated 289 (280-300); Potassium 3.9 mEq/L (3.5-4.5); Sodium 137 mEq/L (136-145); eGFR For African Americans > 60 (> 60); eGFR For Non-African Americans > 60 (> 60)
[2017-09-08 06:33] LABS: Basophils % 0.3 %; Eosinophils # 0.3 K/mcL (0.0-0.6); Eosinophils % 3.2 %; Hematocrit 34.2 % (35.3-44.9); Hemoglobin 10.9 g/dL (11.5-15.4); Immature Granulocytes % 0.2 % (0-4); Lymphocytes # 2.2 K/mcL (0.6-4.6); Lymphocytes % 23.2 %; Mean Corpuscular HGB Conc 31.9 g/dL (31.6-35.5); Mean Corpuscular Hemoglobin 28.5 pg (28.0-33.3); Mean Corpuscular Volume 89.5 fL (83.0-100.0); Mean Platelet Volume 10.6 fL (9.4-12.4); Monocytes # 0.9 K/mcL (0.0-1.3); Monocytes % 9.2 %; Platelet Count 267 K/mcL (140-400); Red Blood Count 3.82 M/mcL (3.82-4.97); Red Cell Distribution Width 14.2 % (11.5-14.5); Segmented Neutrophils % 63.9 %
--- NOTE | 2017-09-08 08:28 | Pulmonology Consult Note ---
Date of Encounter: 09/08/17 Time of Encounter: 08:15 Assessment and Plan (1) ST elevation myocardial infarction (STEMI) of anterior wall Current Visit: Yes Status: Acute Patient denies any significant chest pain and successful intervention (2) Sleep apnea, unspecified Current Visit: Yes Status: Suspected Patient has multiple comorbidities and I suspect highly she has sleep disorder breathing and explained to her that I will order sleep study that can be done as outpatient and can follow up after that as outpatient.. Qualifiers: Sleep apnea type: unspecified type Qualified Code(s): G47.30 - Sleep apnea , unspecified (3) DM type 2 (diabetes mellitus, type 2) Current Visit: Yes Status: Chronic Patient is not controlled and she is on sliding scale insulin I will add a basal insulin and check hemoglobin A1c. She will be transferred to the floor and can be followed up by the hospitalist. Thanks for the consultation Qualifiers: Diabetes mellitus complication status: with unspecified complications Diabetes mellitus long-term insulin use: unspecified intermodal dispatcher insulin use status Qualified Code(s): E11.8 - Type 2 diabetes mellitus with unspecified complications History of Present Illness Consult date: 09/08/17 Requesting physician: Isidoro Gamble Reason for consult: other (Critical care management) Chief complaint: Chest pain History of present illness: This is a very pleasant 57-year-old female with history of type 2 diabetes, hypertension, hyperlipidemia presented to the hospital with the chest pain and was found to have acute coronary syndrome after intervention patient was admitted to the ICU. Patient also has history of smoking and she is never tested for sleep disorder breathing, however she has significant history of snoring and not sure about witnessed apnea and she reports fatigue. At this time she denies any chest pain, no cough and denies any wheezing. Patient has history of dyspnea on exertion. She denies any fever or chills. Past Med Surg Social Fam HX - Past Medical History Medical history: diabetes, hypertension, kidney stones, other Psychiatric history: anxiety - Past Surgical History Surgical History: cholecystectomy, sinus surgery, bariatric surgery - Social History Smoking Status: Former smoker Smokeless Tobacco Status: No Alcohol use: unknown Drug use: none - Family History Mother Living Status: Still Living Hx Family Cardiac Disorders: Yes Medications and Allergies Cyclobenzaprine HCl 5 mg PO TID PRN #30 tablet 02/15/16 [Rx] Escitalopram [Lexapro] 10 mg PO DAILY 02/15/16 [History] Ibuprofen [Motrin] 600 mg PO Q6-8H PRN #30 tab 02/15/16 [Rx] Insulin ASPART [Novolog] 15 unit SQ TIDAC 02/15/16 [History] Insulin Glargine,Hum.rec.anlog [Lantus Solostar] 80 unit SQ HS 02/15/16 [History ] BuPROPion [Wellbutrin] 100 mg PO DAILY 10/30/16 [History] Fenugreek Seed Extract [Fenugreek] 500 mg PO DAILY 10/30/16 [History] HYDROcodone/Acet 5/325 mg [Terril 5-325 mg] 1 tab PO Q6H PRN 10/30/16 [History] Candesartan Cilexetil [Atacand] 4 mg PO DAILY 12/06/16 [History] Empagliflozin [Jardiance] 1 tab PO QDPC 02/15/17 [History] ARIPiprazole [Abilify] 5 mg PO DAILY 09/07/17 [History] ARIPiprazole [Abilify] 5 mg PO DAILY 09/07/17 [History] Acetaminophen/Butalbital/Caffe [Fioricet] 1 tab PO BID PRN 09/07/17 [History] Buspirone HCl [Buspar] 10 mg PO DAILY 09/07/17 [History] hydroCHLOROthiazide [Hydrochlorothiazide] 50 mg PO DAILY 09/07/17 [History] 3 Allergy/AdvReac Type Severity Reaction Status Date / Time Amoxicillin [From Amoxil] Allergy Rash Verified 06/05/17 14:38 clavulanic acid Allergy Hives Verified 06/05/17 14:38 [From Augmentin] iodine Allergy Rash Verified 06/05/17 14:38 pentazocine [From Talwin] Allergy Rash Verified 06/05/17 14:38 All Systems: A 10-system review of systems was performed and is negative for pertinent findings except as documented above in the HPI. Physical Examination Vital Signs: Vital Signs, Last 4 Hours Temp Pulse Resp BP Pulse Ox 09/08/17 07:54 98.0 F 09/08/17 06:00 89 18 136/81 98 09/08/17 05:00 85 18 148/80 98 General appearance: no acute distress ENT: oropharynx moist Mallampati (class): 4 Neck: supple Effort: normal Inspection: normal Auscultation: bilateral: clear Percussion: bilateral: not dull Cardiovascular: regular rate and rhythm Gastrointestinal: normoactive bowel sounds Extremities: no cyanosis normal mental status, non-focal exam mood appropriate Results - Laboratory Findings CBC and BMP: 09/08/17 05:53 09/08/17 05:53 PT/INR, D-dimer PT 11.3 Seconds (9.4-12.1) 09/07/17 11:54 Abnormal lab findings: Abnormal lab results Hgb 10.9 g/dL (11.5-15.4) L 09/08/17 05:53 Hct 34.2 % (35.3-44.9) L 09/08/17 05:53 Glucose 195 mg/dL (70-99) H 09/08/17 05:53 POC Glucose 179 (58-89) H 09/08/17 07:44 Troponin I 12.16 ng/mL (0-0.03) H* 09/07/17 11:54 - Clinical Findings Intake & Output: Intake & Output 09/07/17 09/08/17 09/08/17 23:59 07:59 15:59 Intake Total 120 / 120 1000 / 1000 Output Total 500 / 500 0 / 0 Balance -380 / -380 1000 / 1000 Weight 113.8 kg Consult Discharge Plan - Plan Referrals: Oumar Wood MD [Primary Care Provider] -
[2017-09-08] MEDS: *HR* Ticagrelor 90 MG TABLET PO SCH ×2 (08:52→20:09)
[2017-09-08] MEDS: Aspirin 81 MG TAB.CHEW PO SCH (08:52)
[2017-09-08] MEDS: Famotidine 20 MG TABLET PO SCH ×2 (08:52→17:12)
[2017-09-08] MEDS: Insulin LISPRO 300 UNITS/3 ML VIAL SQ SCH ×6 (08:53→20:09)
[2017-09-08 09:46] LABS: Hemoglobin A1C 9.4 %
[2017-09-08] MEDS ORDERED: Acetaminophen/Butalbital/CaffeineTABLET PO PRN (09:55)
[2017-09-08] MEDS: ARIPiprazole 5 MG TABLET PO SCH (11:11)
[2017-09-08] MEDS: EMPAGLIFLOZIN PO SCH (11:12)
[2017-09-08] MEDS: CANDESARTAN CILEXETIL 4 MG PO SCH (11:12)
--- NOTE | 2017-09-08 12:10 | Cardiology Progress Note ---
Date of Encounter: 09/08/17 Time of Encounter: 10:00 Assessment and Plan (1) ST elevation myocardial infarction (STEMI) of anterior wall Current Visit: Yes Status: Acute S/p acute OR 09/08/17. LHC showed 99% stenosis in the Mid LAD. S/p PTCA and OCTAVIANO to mLAD with good results. 50% stenosis in the 1st Marginal remaining. EF 35%. There was no complication from the procedure. Importance of DAPT with asa and brilinta uninterrupted for minimum of one year reviewed with patient and she voiced understanding. Continue statin and bb. Right groin with excoriation noted. No hematoma or redness. Mild ecchymosis. Dry dressing reapplied for excoriation. Instructed to keep dry and clean. Activity restrictions reviewed. No driving for one week. No heavy lifting over 10 lbs. Phase one cardiac rehab ordered. (2) Cardiomyopathy Current Visit: Yes Status: Acute Acute systolic CHF. EF 35%. Currently euvolemic. On post procedure IV fluid. I will d/c. Continue bb and arb. CHF education reviewed. Low sodium diet and daily weights Qualifiers: Cardiomyopathy type: ischemic Qualified Code(s): I25.5 - Ischemic cardiomyopathy (3) Suspected sleep apnea Current Visit: Yes Status: Acute BOUCHRA suspected by pulmonology. Sleep study recommended in out pt setting. Appreciate input. (4) DM type 2 (diabetes mellitus, type 2) Current Visit: Yes Status: Chronic Continue home medications including insulin. Qualifiers: Diabetes mellitus complication status: with unspecified complications Diabetes mellitus residential insulin use: unspecified residential insulin use status Qualified Code(s): E11.8 - Type 2 diabetes mellitus with unspecified complications Discussion w patient/family: The assessment and plan as outlined above was discussed with the patient and/or family members who expressed understanding and agreement. All questions were answered. Thank you for involving us in the care of your patient. Please call with any questions. Subjective Principal diagnosis: STEMI Interval history: S/p PCI. Denies recurrent chest pain. Denies problems with her right groin access site. Objective Vital Signs, Last 4 Hours Temp Pulse Resp BP Pulse Ox 09/08/17 11:40 99.6 F 86 16 149/71 100 09/08/17 09:34 98.1 F 93 16 121/75 97 General: Conversant, No Apparent Distress HEENT: Atraumatic, Normocephaly, Mucus Membranes Moist Neck: No JVD, Normal carotid pulses Cardiac: Reg Rate and Rhythm, Normal S1 and S2, No Murmur Lungs: Normal Breath Sounds, No Wheeze, Rales, Rhonchi Neuro: Alert and responsive, No focal deficits noted Abdomen: Soft, Non-Tender Skin: No rashes noted on visualized skin Musculoskeletal: No Chest Wall Tenderness Extremities: No Clubbing, No Cyanosis, No Edema, Normal Pulses, Other (No hematoma, mild excoration noted in right groin. Mild ecchymosis. ) Results 09/08/17 05:53 09/08/17 05:53 Lab Results 09/08/17 09/08/17 05:53 05:53 WBC 9.4 Hgb 10.9 L Hct 34.2 L Plt Count 267 Sodium 137 Potassium 3.9 Chloride 105 Carbon Dioxide 25 BUN 12 Creatinine 0.60 Glucose 195 H Calcium 8.8 - Imaging and Cardiology Echo: report reviewed - EKG Interpretation EKG results cardiology: personally reviewed - VTE Reasons for not Prescribing Prophylaxis: Not indicated-Anticoagulated or INR therapeutic Consult Discharge Plan - Plan Referrals: Oumar Wood MD [Primary Care Provider] -
[2017-09-08] MEDS: *HR* HYDROcodone/Acet 5/325 mg TABLET PO PRN ×2 (13:53→20:21)
[2017-09-08] MEDS ORDERED: Insulin DETEMIR 100 UNIT/ML X5UNITS SQ SCH ×2 (21:00)
--- NOTE | 2017-09-09 07:00 | Discharge Summary ---
Date of Encounter: 09/09/17 Time of Encounter: 06:55 - Discharge Diagnosis (1) Acute [place] Priority: Primary Status: Acute Comments: Presented with CP, ECG changes, Troponin above 12, acute [place]. Qualifiers: Myocardial infarction ST status: non-ST elevation myocardial infarction Qualified Code(s): I21.4 - Non-ST elevation (NSTEMI) myocardial infarction - Discharge Medications Prescriptions: Atorvastatin [Lipitor] 40 mg PO HS #30 tablet Carvedilol [Coreg] 3.125 mg PO BIDWM #60 tablet Nitroglycerin 0.4 mg SL PRN PRN #30 tab.subl PRN Reason: chest pain Ticagrelor [Brilinta] 90 mg PO BID #60 tablet Home Medications: Cyclobenzaprine HCl 5 mg PO TID PRN #30 tablet 02/15/16 [Rx] Escitalopram [Lexapro] 10 mg PO DAILY 02/15/16 [History] Insulin ASPART [Novolog] 15 unit SQ TIDAC 02/15/16 [History] Insulin Glargine,Hum.rec.anlog [Lantus Solostar] 80 unit SQ HS 02/15/16 [History ] BuPROPion [Wellbutrin] 100 mg PO DAILY 10/30/16 [History] Fenugreek Seed Extract [Fenugreek] 500 mg PO DAILY 10/30/16 [History] HYDROcodone/Acet 5/325 mg [[place] 5-325 mg] 1 tab PO Q6H PRN 10/30/16 [History] Candesartan Cilexetil [Atacand] 4 mg PO DAILY 12/06/16 [History] Empagliflozin [Jardiance] 1 tab PO QDPC 02/15/17 [History] ARIPiprazole [Abilify] 5 mg PO DAILY 09/07/17 [History] ARIPiprazole [Abilify] 5 mg PO DAILY 09/07/17 [History] Acetaminophen/Butalbital/Caffe [Fioricet] 1 tab PO BID PRN 09/07/17 [History] Buspirone HCl [Buspar] 10 mg PO DAILY 09/07/17 [History] Aspirin 81 mg PO DAILY tab.chew 09/09/17 [Rx] Atorvastatin [Lipitor] 40 mg PO HS #30 tablet 09/09/17 [Rx] Carvedilol [Coreg] 3.125 mg PO BIDWM #60 tablet 09/09/17 [Rx] Nitroglycerin 0.4 mg SL PRN PRN #30 tab.subl 09/09/17 [Rx] Ticagrelor [Brilinta] 90 mg PO BID #60 tablet 09/09/17 [Rx] Allergies/Adverse Reactions: 3 Allergy/AdvReac Type Severity Reaction Status Date / Time Amoxicillin [From Amoxil] Allergy Rash Verified 06/05/17 14:38 clavulanic acid Allergy Hives Verified 06/05/17 14:38 [From Augmentin] iodine Allergy Rash Verified 06/05/17 14:38 pentazocine [From Talwin] Allergy Rash Verified 06/05/17 14:38 Procedures/tests Complete & Pending: Procedures Performed prior 72 hours Category Date Time Status CL Cardiac Catheterization [CL] Routine [facility] [employer]man 09/07/17 12:55 Completed ECG 12 lead ECG [ECG] AM 0600 Y 09/08/17 06:00 Ordered EV echocardiogram w enhance Routine Y 09/07/17 13:30 Completed Date of admission: 09/07/17 12:54 Primary care physician: Oumar Wood MD Consults: 09/07/17 13:30 Consult to Cardiac Rehabilitation-Phase1 [CONS] Routine Comment: Reason for Consult: [place] Call Completed: No 09/07/17 17:57 Consult to Critical Care [CONS] Routine Consulting Provider: [facility] & Elaine Avitia Reason for Consult: medical management Call Completed: No Discharging clinician: Hermann Quintanilla Anticipated date of discharge: 09/09/17 - Patient Status Disposition: Home, Self-Care Condition: Fair Overall status at discharge: patient is progressing back to baseline - Discharge Instructions Follow Up With: Oumar Wood MD [Primary Care Provider] - Additional Instructions: No driving for one week. No heavy lifting over 10 lbs keep groin clean and dry reapply dressing as needed - Diet and Activity Activity: other Diet: diabetic diet, low fat, low cholesterol, low salt diet - Hospital Course Hospital course: Ms. Aayush Kaufman is a 57 year old female presented with chest pain, ECG changes, troponin elevation, acute [place] taken urgently to catheterization lab with catheterization showing EF 35% and status post PTCA/drug-eluting stent to mid LAD 99% lesion, otherwise normal coronary angiogram. Echo showed: Impressions: LVEF 40%. Mild concentric left ventricular hypertrophy. Moderate segmental left ventricular systolic dysfunction. Mild left ventricular diastolic dysfunction. Normal right ventricular structure and function. No evidence of a PFO with agitated saline contrast. No evidence of pulmonary hypertension. Suboptimal study due to tachycardia, image quality. Prepping for discharge home today in stable condition. Education provided post catheterization management. Patient encouraged to not discontinue aspirin or Brilinta for at least one year unless directed by cardiology. All questions answered. - Time Spent with Patient Total time spent providing and/or coordinating discharge services: Less than 30 minutes Physical Examination Vital Signs, Last 4 Hours Temp Pulse Resp BP Pulse Ox 09/09/17 04:30 98.6 F 88 18 130/74 94 General: Conversant, No Apparent Distress HEENT: Atraumatic, Normocephaly, Mucus Membranes Moist Neck: No JVD, Normal carotid pulses Cardiac: Reg Rate and Rhythm, Normal S1 and S2, No Murmur Lungs: Normal Breath Sounds, No Wheeze, Rales, Rhonchi Neuro: Alert and responsive, No focal deficits noted Abdomen: Soft, Non-Tender Skin: No rashes noted on visualized skin, Other (Right groin site with mild to moderate ecchymosis, no bleeding, no hematoma, right DP and PT pulses 1+ palpable) Musculoskeletal: No Chest Wall Tenderness Extremities: No Clubbing, No Cyanosis, No Edema, Normal Pulses - VTE Reasons for not Prescribing Prophylaxis: Not indicated-Anticoagulated or INR therapeutic
[2017-09-09 07:11] VITALS: BP 132/74
[2017-09-09] MEDS: Insulin LISPRO 300 UNITS/3 ML VIAL SQ SCH ×2 (08:16)
[2017-09-09] MEDS: Aspirin 81 MG TAB.CHEW PO SCH (08:17)
[2017-09-09] MEDS: ARIPiprazole 5 MG TABLET PO SCH (08:17)
[2017-09-09] MEDS: *HR* Ticagrelor 90 MG TABLET PO SCH (08:17)
[2017-09-09] MEDS: Famotidine 20 MG TABLET PO SCH (08:18)
[2017-09-09] MEDS: EMPAGLIFLOZIN PO SCH (08:18)
[2017-09-09] MEDS: CANDESARTAN CILEXETIL 4 MG PO SCH (08:18)
== END 2017-09-09 09:52 | disposition home or self-care (01) | DRG 246 ==
LOC: EMEROO 11:32 → ICNU 12:54 → 2NNU 09-08 09:35
PROVIDERS: ADMIT Internal Medicine Cardiovascular Disease; ATTEND Internal Medicine Cardiovascular Disease

== ENCOUNTER 2018-01-02 09:25 | Observation (INO) ==
[2018-01-02] MEDS ORDERED: Nitroglycerin 0.4 MG TAB.SUBL SL PRN (09:54)
[2018-01-02] MEDS ORDERED: Aspirin 81 MG TAB.CHEW PO STA (09:54)
--- NOTE | 2018-01-02 09:58 | Emergency Department Note ---
Disposition Clinical Impression: Left leg swelling Chest pain Qualifiers: Chest pain type: unspecified Qualified Code(s): R07.9 - Chest pain, unspecified Disposition: Admitted As Inpatient Condition: Fair Referrals: Oumar Wood MD [Primary Care Provider] - Forms: ED Satisfaction Letter Time of Disposition: 14:59 General Adult HPI - General Chief complaint: ED Back Pain/Injury Stated complaint: back pain Time Seen by Provider: 01/02/18 09:35 Source: patient Limitations: no limitations Nursing Notes Reviewed: Yes Vital Signs Reviewed: Yes - History of Present Illness HPI Narrative: Patient is a 57-year-old female complains of left thoracic back pain that started 12 hours ago that sharp piercing in character that is also causing pain on the anterior chest. Patient states pain symptoms are worse with touching. His pain is constant and has nausea without vomiting with it as well. There is no radiation of pain symptoms. Patient states she has also has diaphoresis. Patient states she tried to nitroglycerin and had no effect on her pain. Patient was concerned that may be this was musculoskeletal in nature but she had this exact same symptoms when she had her heart attack back in August 2017. Patient called her PCP and was directed to come to the ED immediately. Pain Scale: 7 - Related Data Home Medications Medication Instructions Recorded Confirmed Escitalopram [Lexapro] 10 mg PO DAILY 02/15/16 01/02/18 Insulin ASPART [Novolog] 15 unit SQ TIDAC 02/15/16 01/02/18 BuPROPion [Wellbutrin] 100 mg PO DAILY 10/30/16 01/02/18 Fenugreek Seed Extract [Fenugreek] 500 mg PO DAILY 10/30/16 01/02/18 HYDROcodone/Acet 5/325 mg [[place] 1 tab PO Q6H PRN 10/30/16 01/02/18 5-325 mg] Candesartan Cilexetil [Atacand] 4 mg PO DAILY 12/06/16 01/02/18 Clopidogrel [Plavix] 75 mg PO DAILY 10/09/17 01/02/18 Empagliflozin [Jardiance] 20 mg PO DAILY 10/09/17 01/02/18 Fluconazole [Diflucan] 50 mg PO PRN PRN 10/09/17 01/02/18 Insulin Glargine,Hum.rec.anlog 55 - 70 unit SQ HS 10/09/17 01/02/18 [Basaglar Kwikpen U-100] Iron Fum,Ps No.1/Vit C/L.casei 1 each PO DAILY 10/09/17 01/02/18 [Fusion Capsule] valACYclovir [Valtrex] 500 mg PO DAILY PRN 10/09/17 01/02/18 Furosemide [Lasix] 20 mg PO DAILY 10/22/17 01/02/18 Carvedilol 1.56 mg PO BID 01/02/18 01/02/18 Nitroglycerin 0.4 mg SL Q5M PRN 01/02/18 01/02/18 Previous Rx's Medication Instructions Recorded Cyclobenzaprine HCl 5 mg PO TID PRN #30 tablet 02/15/16 Aspirin 81 mg PO DAILY tab.chew 09/09/17 Atorvastatin [Lipitor] 40 mg PO HS #30 tablet 09/09/17 Allergies Allergy/AdvReac Type Severity Reaction Status Date / Time Amoxicillin [From Amoxil] Allergy Rash Verified 01/02/18 12:48 clavulanic acid Allergy Hives Verified 01/02/18 12:48 [From Augmentin] iodine Allergy Rash Verified 01/02/18 12:48 pentazocine [From Talwin] Allergy Rash Verified 01/02/18 12:48 All systems ED: reviewed and negative except as stated. Review of Systems: As Per HPI Constitutional: Reports: chills. Denies: fever, weakness ENT ED: Denies: congestion Past Medical History - Past Medical History Medical history: Reports: arthritis, CHF, coronary artery disease, diabetes, fibromyalgia, GERD, glaucoma, hyperlipidemia, hypertension, kidney stones, liver disease, migraine, myocardial infarction, other Surgical history: Reports: cholecystectomy, sinus surgery, bariatric surgery Psychiatric history: Reports: anxiety - Social History Smoking Status: Former smoker Smokeless Tobacco Status: No Alcohol use: Reports: unknown Drug use: Reports: none Physical Exam - General Limitations: no limitations General appearance: alert, in no apparent distress Course - Reevaluation(s) Reevaluation #1: 03/03 LLE doppler ordered Time: 10:37 Reevaluation #2: Patient is doing well presently. Pain symptoms 11/03. Patient will receive one more nitroglycerin sublingually. Patient's d-dimer was elevated and will be sent for CTA of his chest. Patient's troponin was negative. Time: 11:40 Reevaluation #3: Patient was negative for DVT in the left lower extremity. Patient is awaiting CTA. Patient requires premedication of 50 mg Benadryl, and also received 40 mg of Pepcid and 125 of Solu-Medrol IV Time: 12:51 - Consultations Consultation #1: Dr. Finnegan the hospitalist as accepted patient for admission Time: 13:42 Vital Signs Temperature 97.9 F 01/02/18 09:26 Pulse Rate 76 01/02/18 09:26 Respiratory Rate 18 01/02/18 09:26 Blood Pressure 165/82 01/02/18 09:26 O2 Sat by Pulse Oximetry 99 01/02/18 09:26 Temperature 97.9 F 01/02/18 09:26 Pulse Rate 77 01/02/18 12:49 Respiratory Rate 12 01/02/18 12:49 Blood Pressure 156/79 01/02/18 12:49 O2 Sat by Pulse Oximetry 96 01/02/18 12:49 Oxygen Delivery Oxygen Delivery Room Air Medical Decision Making - [facility] Narrative Medical decision making narrative: Patient with chest pain that appears to be her anginal equivalent also has left lower extremity swelling that is new over the past 3 days with left knee pain. Patient is concerning for ACS/IN, PE. Patient does show clinical signs of DVT and is considered at moderate risk for PE under Wells criteria because of her left lower extremity edema with knee pain. Currently doubt Aortic dissection because patient does not have any tearing pain from front to back, no pulse deficits, no mediastinal widening or obscuration of aortic knob on chest x-ray. Patient's pain has been brought under control with sublingual nitroglycerin. Patient's workup was negative for any abnormalities on her chest x-ray, no abnormalities on CBC, or BMP ordered clinically relevant. Faheem and has a negative troponin. Patient's d-dimer did come back elevated at 840, and patient was sent for CTA of chest. Because patient has a history of contrast- induced reaction that after pretreatment with Benadryl pre-treatment last time she had a CT due to her iodine allergy patient requires pretreatment here today. Patient was given IV Benadryl 50 mg, 40 mg of IV Pepcid, and 125 of Solu -Medrol IV. Patient will need to wait 8 hours after administration before she can get up for CTA to assess for PE and or aortic dissection given patient's pain pattern. Patient was accepted for admission, but accepting physician Dr. Finnegan the hospitalist would like a VQ scan now to decrease suspicion of PE so patient can either start or hold off from anticoagulation. Patient had a VQ scan which was low probability for PE. Patient will receive CTA chest for aortic dissection assessment. Patient understands and agrees to treatment and plan for admission and is currently in stable condition with 0 pain. - Lab Data Lab results reviewed: Yes I reviewed the patient's lab results. Lab results narrative: Short CBC 01/02/18 Range/Units 09:54 WBC 9.3 (4.3-11.1) K/mcL Hgb 11.4 L (11.5-15.4) g/dL Hct 36.2 (35.3-44.9) % Plt Count 221 (140-400) K/mcL Neutrophils # 6.6 (1.6-8.9) K/mcL BMP 01/02/18 Range/Units 09:54 Sodium 139 (136-145) mEq/L Potassium 4.0 (3.5-5.1) mEq/L Chloride 107 (98-107) mEq/L Carbon Dioxide 23 (23-29) mEq/L BUN 15 (6-20) mg/dL Creatinine 0.64 (0.60-1.20) mg/dL Glucose 149 H (70-105) mg/dL Calcium 9.3 (8.6-10.3) mg/dL Cardiac Enzymes 01/02/18 Range/Units 09:54 Troponin I < 0.03 (< 0.04) ng/mL Result diagrams: 01/02/18 09:54 01/02/18 09:54 Lab Results 01/02/18 01/02/18 01/02/18 Range/Units 09:54 09:54 09:54 WBC 9.3 (4.3-11.1) K/mcL RBC 4.13 (3.82-4.97) M/mcL Hgb 11.4 L (11.5-15.4) g/dL Hct 36.2 (35.3-44.9) % MCV 87.7 (83.0-100.0) fL MCH 27.6 L (28.0-33.3) pg MCHC 31.5 L (31.6-35.5) g/dL RDW 14.8 H (11.5-14.5) % Plt Count 221 (140-400) K/mcL MPV 10.3 (9.4-12.4) fL Immature Gran % 0.2 (0-4) % Seg Neutrophils % 71.1 % Lymphocytes % 19.9 % Monocytes % 6.2 % Eosinophils % 2.3 % Basophils % 0.3 % Neutrophils # 6.6 (1.6-8.9) K/mcL Lymphocytes # 1.9 (0.6-4.6) K/mcL Monocytes # 0.6 (0.0-1.3) K/mcL Eosinophils # 0.2 (0.0-0.6) K/mcL Basophils # 0.0 (0.0-0.2) K/mcL D-Dimer 820 H (0-500) ng/mLFEU Sodium 139 (136-145) mEq/L Potassium 4.0 (3.5-5.1) mEq/L Chloride 107 (98-107) mEq/L Carbon Dioxide 23 (23-29) mEq/L BUN 15 (6-20) mg/dL Creatinine 0.64 (0.60-1.20) mg/dL Est GFR ( Amer) > 60 (> 60) Est GFR (Non-Af Amer) > 60 (> 60) BUN/Creatinine Ratio 23 (6-26) Glucose 149 H (70-105) mg/dL Calculated Osmolality 292 (280-300) Calcium 9.3 (8.6-10.3) mg/dL Troponin I < 0.03 (< 0.04) ng/mL - Radiology Data Radiology results reviewed: Yes I reviewed the patient's radiology results. Chest X-Ray 01/02/18 09:36 IMPRESSION: No acute process. D/ / Sam Quintanilla MD / Sam Quintanilla MD Interpreting Provider: Sam Quintanilla MD Pulmonary Perfusion Imaging 01/02/18 13:23 IMPRESSION: Low Probability for Pulmonary Embolus. D/ / Shaggy Huizar MD / Shaggy Huizar MD Interpreting Provider: Shaggy Huizar MD - EKG Data EKG #1 EKG attestation: Yes I reviewed and interpreted this EKG. EKG results narrative: EKG taken 01/02/2018@0931 hrs. shows sinus rhythm at a rate of 75 beats minute. No acute ST elevations or depressions in any leads, no QRS widening or QT prolongation. No Brugada, Wellens, WPW. Today's EKG looks better than previous EKG taken on 09/07/[address] elevation in lead 1, V2, V3, V4.
--- NOTE | 2018-01-02 10:35 | Emergency Department Note ---
Disposition Clinical Impression: Left leg swelling Disposition: Still a Patient Forms: ED Satisfaction Letter General Adult HPI - General Chief complaint: ED Back Pain/Injury Stated complaint: back pain Time Seen by Provider: 01/02/18 09:35 Source: patient Limitations: no limitations - History of Present Illness Pain Scale: 7 - Related Data Home Medications Medication Instructions Recorded Confirmed Escitalopram [Lexapro] 10 mg PO DAILY 02/15/16 12/04/17 Insulin ASPART [Novolog] 15 unit SQ TIDAC 02/15/16 12/04/17 BuPROPion [Wellbutrin] 100 mg PO DAILY 10/30/16 12/04/17 Fenugreek Seed Extract [Fenugreek] 500 mg PO DAILY 10/30/16 12/04/17 HYDROcodone/Acet 5/325 mg [[place] 1 tab PO Q6H PRN 10/30/16 12/04/17 5-325 mg] Candesartan Cilexetil [Atacand] 4 mg PO DAILY 12/06/16 12/04/17 Clopidogrel [Plavix] 75 mg PO DAILY 10/09/17 12/04/17 Empagliflozin [Jardiance] 20 mg PO DAILY 10/09/17 12/04/17 Fluconazole [Diflucan] 50 mg PO PRN PRN 10/09/17 12/04/17 Insulin Glargine,Hum.rec.anlog 55 - 70 unit SQ HS 10/09/17 12/04/17 [Basaglar Kwikpen U-100] Iron Fum,Ps No.1/Vit C/L.casei 1 each PO DAILY 10/09/17 12/04/17 [Fusion Capsule] valACYclovir [Valtrex] 500 mg PO PRN PRN 10/09/17 12/04/17 Furosemide [Lasix] 20 mg PO DAILY 10/22/17 12/04/17 Previous Rx's Medication Instructions Recorded Cyclobenzaprine HCl 5 mg PO TID PRN #30 tablet 02/15/16 Aspirin 81 mg PO DAILY tab.chew 09/09/17 Atorvastatin [Lipitor] 40 mg PO HS #30 tablet 09/09/17 Carvedilol [Coreg] 3.125 mg PO BIDWM #60 tablet 09/09/17 Nitroglycerin 0.4 mg SL PRN PRN #30 tab.subl 09/09/17 Allergies Allergy/AdvReac Type Severity Reaction Status Date / Time Amoxicillin [From Amoxil] Allergy Rash Verified 12/04/17 14:14 clavulanic acid Allergy Hives Verified 12/04/17 14:14 [From Augmentin] iodine Allergy Rash Verified 12/04/17 14:14 pentazocine [From Talwin] Allergy Rash Verified 12/04/17 14:14 Constitutional: Reports: chills. Denies: fever, weakness ENT ED: Denies: congestion Past Medical History - Past Medical History Medical history: Reports: arthritis, CHF, coronary artery disease, diabetes, fibromyalgia, GERD, glaucoma, hyperlipidemia, hypertension, kidney stones, liver disease, migraine, myocardial infarction, other Surgical history: Reports: cholecystectomy, sinus surgery, bariatric surgery Psychiatric history: Reports: anxiety - Social History Smoking Status: Former smoker Smokeless Tobacco Status: No Alcohol use: Reports: unknown Drug use: Reports: none Physical Exam - General Limitations: no limitations General appearance: alert, in no apparent distress Course Vital Signs Temperature 97.9 F 01/02/18 09:26 Pulse Rate 76 01/02/18 09:26 Respiratory Rate 18 01/02/18 09:26 Blood Pressure 165/82 01/02/18 09:26 O2 Sat by Pulse Oximetry 99 01/02/18 09:26 Temperature 97.9 F 01/02/18 09:26 Pulse Rate 78 01/02/18 09:48 Respiratory Rate 10 01/02/18 09:48 Blood Pressure 170/85 01/02/18 09:48 O2 Sat by Pulse Oximetry 100 01/02/18 09:48 Oxygen Delivery Oxygen Delivery Room Air Procedures - Ultrasound-Other Narrative: US STUDY: Left lower extremity DVT INDICATION: Left lower extremity swelling Discussion of risks, benefits and alternatives with pateint and concsent verbally obtained prior to study. Time out Performed. FINDINGS: Patient was placed in supine position and externally rotated, freely compressible, and femoral superficial femoral, deep femoral and radial veins were noticed on the left, no evidence of decreased compressibility. All veins are freely compressible, and the venous system was tracked from the left groin to the left popliteal fossa, with no evidence of noncompressible veins. IMPRESSON: Negative Bedside ED US for DVT from common femoral through popliteal vein Performed and Interpretted by myself, Attending Physician Dr. Alonso Medical Decision Making - MDM Narrative Medical decision making narrative: Procedure note only, see Dr. Treviño/Juanjose documentation for H&P and MDM.
[2018-01-02 10:39] LABS: Basophils % 0.3 %; Eosinophils # 0.2 K/mcL (0.0-0.6); Eosinophils % 2.3 %; Hematocrit 36.2 % (35.3-44.9); Hemoglobin 11.4 g/dL (11.5-15.4); Immature Granulocytes % 0.2 % (0-4); Lymphocytes # 1.9 K/mcL (0.6-4.6); Lymphocytes % 19.9 %; Mean Corpuscular HGB Conc 31.5 g/dL (31.6-35.5); Mean Corpuscular Hemoglobin 27.6 pg (28.0-33.3); Mean Corpuscular Volume 87.7 fL (83.0-100.0); Mean Platelet Volume 10.3 fL (9.4-12.4); Monocytes # 0.6 K/mcL (0.0-1.3); Monocytes % 6.2 %; Neutrophils # 6.6 K/mcL (1.6-8.9); Platelet Count 221 K/mcL (140-400); Red Blood Count 4.13 M/mcL (3.82-4.97); Red Cell Distribution Width 14.8 % (11.5-14.5); Segmented Neutrophils % 71.1 %
--- NOTE | 2018-01-02 10:57 | Emergency Department Note ---
Disposition Clinical Impression: Left leg swelling Disposition: Still a Patient Referrals: Oumar Wood MD [Primary Care Provider] - Forms: ED Satisfaction Letter General Adult HPI - General Chief complaint: ED Back Pain/Injury Stated complaint: back pain Time Seen by Provider: 01/02/18 09:35 Source: patient Limitations: no limitations Nursing Notes Reviewed: Yes Vital Signs Reviewed: Yes - History of Present Illness Pain Scale: 7 - Related Data Home Medications Medication Instructions Recorded Confirmed Escitalopram [Lexapro] 10 mg PO DAILY 02/15/16 01/02/18 Insulin ASPART [Novolog] 15 unit SQ TIDAC 02/15/16 01/02/18 BuPROPion [Wellbutrin] 100 mg PO DAILY 10/30/16 01/02/18 Fenugreek Seed Extract [Fenugreek] 500 mg PO DAILY 10/30/16 01/02/18 HYDROcodone/Acet 5/325 mg [[place] 1 tab PO Q6H PRN 10/30/16 01/02/18 5-325 mg] Candesartan Cilexetil [Atacand] 4 mg PO DAILY 12/06/16 01/02/18 Clopidogrel [Plavix] 75 mg PO DAILY 10/09/17 01/02/18 Empagliflozin [Jardiance] 20 mg PO DAILY 10/09/17 01/02/18 Fluconazole [Diflucan] 50 mg PO PRN PRN 10/09/17 01/02/18 Insulin Glargine,Hum.rec.anlog 55 - 70 unit SQ HS 10/09/17 01/02/18 [Basaglar Kwikpen U-100] Iron Fum,Ps No.1/Vit C/L.casei 1 each PO DAILY 10/09/17 01/02/18 [Fusion Capsule] valACYclovir [Valtrex] 500 mg PO DAILY PRN 10/09/17 01/02/18 Furosemide [Lasix] 20 mg PO DAILY 10/22/17 01/02/18 Carvedilol 1.56 mg PO BID 01/02/18 01/02/18 Nitroglycerin 0.4 mg SL Q5M PRN 01/02/18 01/02/18 Previous Rx's Medication Instructions Recorded Cyclobenzaprine HCl 5 mg PO TID PRN #30 tablet 02/15/16 Aspirin 81 mg PO DAILY tab.chew 09/09/17 Atorvastatin [Lipitor] 40 mg PO HS #30 tablet 09/09/17 Allergies Allergy/AdvReac Type Severity Reaction Status Date / Time Amoxicillin [From Amoxil] Allergy Rash Verified 01/02/18 12:48 clavulanic acid Allergy Hives Verified 01/02/18 12:48 [From Augmentin] iodine Allergy Rash Verified 01/02/18 12:48 pentazocine [From Talwin] Allergy Rash Verified 01/02/18 12:48 Constitutional: Reports: chills. Denies: fever, weakness ENT ED: Denies: congestion Past Medical History - Past Medical History Medical history: Reports: arthritis, CHF, coronary artery disease, diabetes, fibromyalgia, GERD, glaucoma, hyperlipidemia, hypertension, kidney stones, liver disease, migraine, myocardial infarction, other Surgical history: Reports: cholecystectomy, sinus surgery, bariatric surgery Psychiatric history: Reports: anxiety - Social History Smoking Status: Former smoker Smokeless Tobacco Status: No Alcohol use: Reports: unknown Drug use: Reports: none Physical Exam - General Limitations: no limitations General appearance: alert, in no apparent distress Course Vital Signs Temperature 97.9 F 01/02/18 09:26 Pulse Rate 76 01/02/18 09:26 Respiratory Rate 18 01/02/18 09:26 Blood Pressure 165/82 01/02/18 09:26 O2 Sat by Pulse Oximetry 99 01/02/18 09:26 Temperature 97.9 F 01/02/18 09:26 Pulse Rate 77 01/02/18 12:49 Respiratory Rate 12 01/02/18 12:49 Blood Pressure 156/79 01/02/18 12:49 O2 Sat by Pulse Oximetry 96 01/02/18 12:49 Oxygen Delivery Oxygen Delivery Room Air Medical Decision Making - [facility] Narrative Medical decision making narrative: Chest X-Ray 01/02/18 09:36 IMPRESSION: No acute process. D/ / Sam Quintanilla MD / Sam Quintanilla MD Interpreting Provider: Sam Quintanilla MD 1216 hrs.: Patient's d-dimer is elevated greater than 10 times age. Waiting on CTA and then disposition most likely admission. 1330 hrs.: Patient said she had some itching interreaction after she had her last CT in a medicated her at that time. Workup here is to give her Benadryl and wait an hour. The lids are says to do that along with an H2 and H1 faizan and steroids. Spoke with the hospitalists of that they could do that CT 1 she is admitted on the urine one ago had an do a VQ scan at this time which we will do and she is admitted at this time with hospitalist to follow-up on VQ scan. Patient's in agreement with this plan. - Lab Data Result diagrams: 01/02/18 09:54 01/02/18 09:54 Lab Results 01/02/18 01/02/18 01/02/18 Range/Units 09:54 09:54 09:54 WBC 9.3 (4.3-11.1) K/mcL RBC 4.13 (3.82-4.97) M/mcL Hgb 11.4 L (11.5-15.4) g/dL Hct 36.2 (35.3-44.9) % MCV 87.7 (83.0-100.0) fL MCH 27.6 L (28.0-33.3) pg MCHC 31.5 L (31.6-35.5) g/dL RDW 14.8 H (11.5-14.5) % Plt Count 221 (140-400) K/mcL MPV 10.3 (9.4-12.4) fL Immature Gran % 0.2 (0-4) % Seg Neutrophils % 71.1 % Lymphocytes % 19.9 % Monocytes % 6.2 % Eosinophils % 2.3 % Basophils % 0.3 % Neutrophils # 6.6 (1.6-8.9) K/mcL Lymphocytes # 1.9 (0.6-4.6) K/mcL Monocytes # 0.6 (0.0-1.3) K/mcL Eosinophils # 0.2 (0.0-0.6) K/mcL Basophils # 0.0 (0.0-0.2) K/mcL D-Dimer 820 H (0-500) ng/mLFEU Sodium 139 (136-145) mEq/L Potassium 4.0 (3.5-5.1) mEq/L Chloride 107 (98-107) mEq/L Carbon Dioxide 23 (23-29) mEq/L BUN 15 (6-20) mg/dL Creatinine 0.64 (0.60-1.20) mg/dL Est GFR ( Amer) > 60 (> 60) Est GFR (Non-Af Amer) > 60 (> 60) BUN/Creatinine Ratio 23 (6-26) Glucose 149 H (70-105) mg/dL Calculated Osmolality 292 (280-300) Calcium 9.3 (8.6-10.3) mg/dL Troponin I < 0.03 (< 0.04) ng/mL Attestation Statement - Attestation Attestation: I examined this patient and my medical decision-making was reviewed with the Resident Physician. I agree with the documented findings, disposition and treatment plan as described except to the extent set forth below. Patient seen and evaluated by Dr. Treviño and myself, I agree with his evaluation and management plan, supervise care the patient's stay. Patient has reproducible back pain. It comes around side of her chest. She says she has had some pain in her arm and she said this was her last anginal Jd. She is not any diaphoresis or dyspnea at this time. No abdominal pain. Good pulses. We will do a cardiac workup and reassess. She is in agreement with this plan. She may need admission.
[2018-01-02 11:04] LABS: Troponin I < 0.03 ng/mL (< 0.04)
[2018-01-02 11:09] LABS: BUN/Creatinine Ratio 23 (6-26); Blood Urea Nitrogen 15 mg/dL (6-20); Calcium 9.3 mg/dL (8.6-10.3); Carbon Dioxide 23 mEq/L (23-29); Chloride 107 mEq/L (98-107); Glucose 149 mg/dL (70-105); Osmolality,Calculated 292 (280-300); Sodium 139 mEq/L (136-145); eGFR For African Americans > 60 (> 60); eGFR For Non-African Americans > 60 (> 60)
[2018-01-02] MEDS ORDERED: Isovue-370 500 ML INFUS..BTL IV ONE (11:34)
[2018-01-02] MEDS ORDERED: 0.9 % Sodium Chloride 1,000 ML IVC ONE (11:44)
[2018-01-02] MEDS ORDERED: methylPREDNISolone 125 MG/2 ML VIAL IVP ONE (12:50)
[2018-01-02] MEDS ORDERED: Famotidine 20 MG/2 ML VIAL IVP ONE (12:50)
[2018-01-02] MEDS ORDERED: Naloxone 0.4 MG/ML INJ IVP PRN (14:14)
[2018-01-02] MEDS: Aspirin 81 MG TAB.CHEW PO SCH (21:47)
[2018-01-02] MEDS: *HR* HYDROcodone/Acet 5/325 mg TABLET PO PRN (21:47)
[2018-01-02] MEDS: Pantoprazole 40 MG VIAL IVP SCH (21:50)
--- NOTE | 2018-01-03 01:15 | Internal Med History&Physical ---
Date of Encounter: 01/02/18 Time of Encounter: 12:00 Internal Medicine - H&P: HPI Chief complaint: chest pain History of present illness: Ms. Aayush Kaufman is a 57 year old female history of coronary disease who presents with complaint of chest pain. Patient is she has had chest pain in the past which is most times atypical. Patient was left-sided chest pain with some associated back pain which he thought was a muscle spasm. In the emergency department patient has received aspirin. Patient at this time denies chest pain. Patient also chest pain has completely resolved. She also denies back pain. Patient currently denies headache, visual disturbance, neck pain or weakness. She denies melena or hematochezia. At this time patient has no other concerns. Patient notes she feels like she may be able to go home. Patient to be admitted for further evaluation. Past Med Surg Social Fam HX - Past Medical History Medical history: arthritis, CHF, coronary artery disease, diabetes, fibromyalgia , GERD, glaucoma, hyperlipidemia, hypertension, kidney stones, liver disease, migraine, myocardial infarction, other Psychiatric history: anxiety - Past Surgical History Surgical History: cholecystectomy, sinus surgery, bariatric surgery - Social History Smoking Status: Former smoker Smokeless Tobacco Status: No Alcohol use: unknown Drug use: none - Family History Mother Adopted: No Family Member Ethnicity: Non- Living Status: Still Living Hx Family Cardiac Disorders: Yes (stent,pig valve,aneurysm,pacer,CHF) Hx Family Respiratory Disorders: Yes (COPD) Hx Family Cancer: No Hx Family GI Disorders: Yes (colitis,ulcers) Hx Family Endocrine Disorder: No Hx Family Neuromuscular Disorders: No Hx Family Neurologic Disorders: No Hx Family HEENT Disorders: Yes (glasses, cataract surgeries) Hx Family Autoimmune Disorders: No Internal Medicine - H&P: Meds Cyclobenzaprine HCl 5 mg PO TID PRN #30 tablet 02/15/16 [Rx] Escitalopram [Lexapro] 10 mg PO DAILY 02/15/16 [History] Insulin ASPART [Novolog] 15 unit SQ TIDAC 02/15/16 [History] BuPROPion [Wellbutrin] 100 mg PO DAILY 10/30/16 [History] Fenugreek Seed Extract [Fenugreek] 500 mg PO DAILY 10/30/16 [History] HYDROcodone/Acet 5/325 mg [[place] 5-325 mg] 1 tab PO Q6H PRN 10/30/16 [History] Candesartan Cilexetil [Atacand] 4 mg PO DAILY 12/06/16 [History] Aspirin 81 mg PO DAILY tab.chew 09/09/17 [Rx] Atorvastatin [Lipitor] 40 mg PO HS #30 tablet 09/09/17 [Rx] Clopidogrel [Plavix] 75 mg PO DAILY 10/09/17 [History] Empagliflozin [Jardiance] 20 mg PO DAILY 10/09/17 [History] Fluconazole [Diflucan] 50 mg PO PRN PRN 10/09/17 [History] Insulin Glargine,Hum.rec.anlog [Basaglar Kwikpen U-100] 55 - 70 unit SQ HS 10/09 [History] Iron Fum,Ps No.1/Vit C/L.casei [Fusion Capsule] 1 each PO DAILY 10/09/17 [ History] valACYclovir [Valtrex] 500 mg PO DAILY PRN 10/09/17 [History] Furosemide [Lasix] 20 mg PO DAILY 10/22/17 [History] Carvedilol 1.56 mg PO BID 01/02/18 [History] Nitroglycerin 0.4 mg SL Q5M PRN 01/02/18 [History] 3 Allergy/AdvReac Type Severity Reaction Status Date / Time Amoxicillin [From Amoxil] Allergy Rash Verified 01/02/18 12:48 clavulanic acid Allergy Hives Verified 01/02/18 12:48 [From Augmentin] iodine Allergy Rash Verified 01/02/18 12:48 pentazocine [From Talwin] Allergy Rash Verified 01/02/18 12:48 All Systems PM: A 10-system review of systems was performed and is negative for pertinent findings except as documented above in the HPI. Review of systems: All systems have been reviewed and negative except for as mentioned in history of present illness - Constitutional Vitals: Temp Pulse Resp BP Pulse Ox 98.6 F 95 16 162/82 92 01/02/18 23:04 01/02/18 23:04 01/02/18 23:04 01/02/18 23:04 01/02/18 23:04 Vital signs within Gen.: No apparent distress, calm, cooperative, able to speak in full sentences HEENT: Atraumatic, normocephalic, extraocular wounds are intact, PERRL, no scleral icterus Neck: No JVD, no pain to palpation, full range of motion Heart: Normal S1-S2, regular rate and rhythm Lungs: Clear to auscultation Abdomen: Soft, depressible, nontender, nondistended, positive bowel sounds, no guarding, no rigidity Musculoskeletal: Patient moves all 4 extremities freely, no pain to palpation of large joints Psychiatric: Normal affect Internal Med - H&P Results - Labs CBC & Chem 7: 01/02/18 09:54 01/02/18 09:54 Labs: Cardiac Enzymes 01/02/18 01/02/18 Range/Units 15:27 21:12 Troponin I < 0.03 0.03 (< 0.04) ng/mL - Assessment and plan (1) Chest pain Current Visit: Yes Status: Acute Assessment and plan: Atypical in description. Chest pain is not completely resolved Troponin 2 negative, Consult patient's primary criminal lawyer in a.m. Dr. Gamble At this time clinical evidence of acute aortic pathology. VQ scan negative for pulmonary embolism Continuous cardiac monitoring, cycle serial troponin, continue current cardiac medications Qualifiers: Chest pain type: unspecified Qualified Code(s): R07.9 - Chest pain, unspecified (2) Left leg swelling Current Visit: Yes Status: Acute Assessment and plan: Bedside ultrasound negative for DVT by emergency department. She currently denies pain, no signs of cellulitic changes. (3) DM type 2 (diabetes mellitus, type 2) Current Visit: No Status: Chronic Assessment and plan: Sliding scale Patient takes certain ranges of insulin depending on her Accu-Cheks. Insulin sliding scale, Accu-Cheks per protocol, patient will be able to tell her providers how much she takes at home and this can be adjusted. SCDs for VTE prophylaxis pending final ultrasound report Further recommendations pending clinical course, repeat laboratory data, final imaging, patient may require additional consultation Qualifiers: Diabetes mellitus detention insulin use: unspecified detention insulin use status Diabetes mellitus complication status: with unspecified complications Qualified Code(s): E11.8 - Type 2 diabetes mellitus with unspecified complications - Time Spent With Patient Total time spent is greater than 50% in coordination of care (as documented) at patient's floor/unit and/or counseling patient:
[2018-01-03] MEDS ORDERED: Dextrose Gel 15 GM/37.5 ML TUBE PO PRN ×2 (01:32)
[2018-01-03] MEDS ORDERED: *HR* Dextrose 50 % in Water (Syg) 50 ML SYRINGE IVP PRN (01:32)
[2018-01-03] MEDS ORDERED: D5% in Water 1,000 ML IVC PRN (01:32)
[2018-01-03 03:17] LABS: Basophils % 0.3 %; Hematocrit 34.3 % (35.3-44.9); Immature Granulocytes % 0.4 % (0-4); Lymphocytes # 1.6 K/mcL (0.6-4.6); Lymphocytes % 14.9 %; Mean Corpuscular HGB Conc 32.1 g/dL (31.6-35.5); Mean Corpuscular Hemoglobin 27.4 pg (28.0-33.3); Mean Corpuscular Volume 85.5 fL (83.0-100.0); Monocytes # 0.7 K/mcL (0.0-1.3); Monocytes % 6.6 %; Neutrophils # 8.3 K/mcL (1.6-8.9); Platelet Count 226 K/mcL (140-400); Red Blood Count 4.01 M/mcL (3.82-4.97); Red Cell Distribution Width 14.6 % (11.5-14.5); Segmented Neutrophils % 77.8 %
[2018-01-03 03:23] LABS: Prothrombin Time 11.1 Seconds (9.4-12.1)
[2018-01-03 03:26] LABS: Activated Partial Thrombo Time 27.3 Seconds (26.0-36.0)
[2018-01-03 03:39] LABS: Alanine Aminotransferase 20 Units/L (7-52); Albumin 3.7 g/dL (3.5-5.7); Albumin/Globulin Ratio 1.1 (1.1-2.2); Alkaline Phosphatase 94 Units/L (34-104); Aspartate Amino Transferase 12 Units/L (13-39); BUN/Creatinine Ratio 25 (6-26); Bilirubin,Total 0.2 mg/dL (0.3-1.0); Blood Urea Nitrogen 18 mg/dL (6-20); Carbon Dioxide 22 mEq/L (23-29); Chloride 105 mEq/L (98-107); Chol/HDL Ratio 2.5 (0-4.9); Cholesterol 143 mg/dL (< 200); Globulin 3.4 g/dL (2.4-3.5); Glucose 270 mg/dL (70-105); HDL Cholesterol 57 mg/dL (40-59); LDL Cholesterol,Calculated 68 mg/dL (0-99); Magnesium 1.8 mg/dL (1.6-2.6); Osmolality,Calculated 293 (280-300); Potassium 3.7 mEq/L (3.5-5.1); Sodium 136 mEq/L (136-145); Total Protein 7.1 g/dL (6.4-8.9); Triglycerides 88 mg/dL (< 150); eGFR For African Americans > 60 (> 60); eGFR For Non-African Americans > 60 (> 60)
[2018-01-03 08:26] LABS: POC eGFR > 60 (> 60)
[2018-01-03] MEDS: Furosemide 20 MG TABLET PO SCH (08:44)
[2018-01-03] MEDS: Pantoprazole 40 MG VIAL IVP SCH (08:44)
[2018-01-03] MEDS: Insulin LISPRO 300 UNITS/3 ML VIAL SQ SCH ×3 (08:49→18:18)
[2018-01-03] MEDS ORDERED: Aspirin 81 MG TAB.CHEW PO SCH (09:00)
--- NOTE | 2018-01-03 09:50 | Cardiology Consult Note ---
<Femi Jimenez - Last Filed: 01/03/18 09:48> Date of Encounter: 01/03/18 Time of Encounter: 09:48 Assessment and Plan (1) Chest pain Status: Acute Atypical chest pain symptoms reproducible on exam. Reports pain similar to previous SC. Currently in cardiac rehab exercising without chest pain. Troponin negative x4. EKG without acute ST changes. Currently pain free. Check limited TTE. If no acute changes continue medical management. Better blood pressure control recommended . Add low dose imdur. Qualifiers: Chest pain type: unspecified Qualified Code(s): R07.9 - Chest pain, unspecified (2) CAD (coronary artery disease) Status: Acute H/o Mi and PCI to the LAD 08/2017. C 08/2017- 99% stenosis mLAD. PTCA and OCTAVIANO placed with good results. 50% stenosis in the 1st OM remaining. EF 35%. TTE 11/08/17- EF 60%, mild MR, mild TR. Continue asa, plavix , statin, and bb. Add imdur. Qualifiers: Coronary Disease-Associated Artery/Lesion type: [place] artery [place] vs. transplanted heart: [place] heart Associated angina: angina presence unspecified Qualified Code(s): I25.10 - Atherosclerotic heart disease of [place] coronary artery without angina pectoris (3) Hypertension Status: Acute Uncontrolled b/p. Increase carvedilol. Qualifiers: Hypertension type: essential hypertension Qualified Code(s): I10 - Essential (primary) hypertension Discussion w patient/family: The assessment and plan as outlined above was discussed with the patient and/or family members who expressed understanding and agreement. All questions were answered. Thank you for involving us in the care of your patient. Please call with any questions. History of Present Illness Consult date: 01/03/18 Requesting physician: Gisell Finnegan Consult reason: Chest pain, h/o SC Chief complaint: Back pain radiating to midsternal chest History of present illness: Ms. Aayush Kaufman is a 57 year old female with past medical history of STEMI s/ p PCI to the LAD in August 2017, Ischemic cardiomyopathy that resolved, DM type II, HTN, and HLD. She presented with the c/o pain radiating from mid clavicular to mid sternum. Pain started while she was watching TV. She took one NTG without relief. Her pain was similar to previous SC so she decided to be evaluated. She is now pain free. Troponin negative x4. EKG with no acute ST changes. Past Med Surg Social Fam HX - Past Medical History Attestation: Yes The following information was validated with the patient. Medical history: arthritis, CHF, coronary artery disease, diabetes, fibromyalgia , GERD, glaucoma, hyperlipidemia, hypertension, kidney stones, liver disease, migraine, myocardial infarction, other Psychiatric history: anxiety - Past Surgical History Surgical History: cholecystectomy, sinus surgery, bariatric surgery - Social History Smoking Status: Former smoker Smokeless Tobacco Status: No Alcohol use: unknown Drug use: none - Family History Mother Adopted: No Family Member Ethnicity: Non- Living Status: Still Living Hx Family Cardiac Disorders: Yes (stent,pig valve,aneurysm,pacer,CHF) Hx Family Respiratory Disorders: Yes (COPD) Hx Family Cancer: No Hx Family GI Disorders: Yes (colitis,ulcers) Hx Family Endocrine Disorder: No Hx Family Neuromuscular Disorders: No Hx Family Neurologic Disorders: No Hx Family HEENT Disorders: Yes (glasses, cataract surgeries) Hx Family Autoimmune Disorders: No Medications and Allergies Cyclobenzaprine HCl 5 mg PO TID PRN #30 tablet 02/15/16 [Rx] Escitalopram [Lexapro] 10 mg PO DAILY 02/15/16 [History] Insulin ASPART [Novolog] 15 unit SQ TIDAC 02/15/16 [History] BuPROPion [Wellbutrin] 100 mg PO DAILY 10/30/16 [History] Fenugreek Seed Extract [Fenugreek] 500 mg PO DAILY 10/30/16 [History] HYDROcodone/Acet 5/325 mg [[place] 5-325 mg] 1 tab PO Q6H PRN 10/30/16 [History] Candesartan Cilexetil [Atacand] 4 mg PO DAILY 12/06/16 [History] Aspirin 81 mg PO DAILY tab.chew 09/09/17 [Rx] Atorvastatin [Lipitor] 40 mg PO HS #30 tablet 09/09/17 [Rx] Clopidogrel [Plavix] 75 mg PO DAILY 10/09/17 [History] Empagliflozin [Jardiance] 20 mg PO DAILY 10/09/17 [History] Fluconazole [Diflucan] 50 mg PO PRN PRN 10/09/17 [History] Insulin Glargine,Hum.rec.anlog [Rosyaglaj Martinpen U-100] 55 - 70 unit SQ HS 10/09 [History] Iron Fum,Ps No.1/Vit C/L.casei [Fusion Capsule] 1 each PO DAILY 10/09/17 [ History] valACYclovir [Valtrex] 500 mg PO DAILY PRN 10/09/17 [History] Furosemide [Lasix] 20 mg PO DAILY 10/22/17 [History] Nitroglycerin 0.4 mg SL Q5M PRN 01/02/18 [History] Carvedilol 3.125 mg PO BID #30 tablet 01/04/18 [Rx] Isosorbide MONOnitrate (24 HR) [Imdur] 30 mg PO DAILY #30 tab.er.24h 01/04/18 [ Rx] 3 Allergy/AdvReac Type Severity Reaction Status Date / Time Amoxicillin [From Amoxil] Allergy Rash Verified 01/02/18 12:48 clavulanic acid Allergy Hives Verified 01/02/18 12:48 [From Augmentin] iodine Allergy Rash Verified 01/02/18 12:48 pentazocine [From Talwin] Allergy Rash Verified 01/02/18 12:48 All Systems Review: The remainder of the systems were reviewed and are negative Physical Examination Vital Signs, Last 4 Hours Temp Pulse Resp BP Pulse Ox 01/03/18 07:00 97.8 F 72 18 112/67 97 General: Conversant, No Apparent Distress HEENT: Atraumatic, Normocephaly, Mucus Membranes Moist Neck: No JVD, Normal carotid pulses Cardiac: Reg Rate and Rhythm, Normal S1 and S2, No Murmur Lungs: Normal Breath Sounds, No Wheeze, Rales, Rhonchi Neuro: Alert and responsive, No focal deficits noted Abdomen: Soft, Non-Tender Skin: No rashes noted on visualized skin Musculoskeletal: Other (Chest wall tenderness with palpation.) Extremities: No Clubbing, No Cyanosis, No Edema, Normal Pulses Results 01/03/18 02:57 01/03/18 02:57 Lab Results 01/02/18 01/02/18 01/03/18 15:27 21:12 02:57 WBC Hgb Hct Plt Count INR APTT Sodium Potassium Chloride Carbon Dioxide BUN Creatinine Glucose Calcium Magnesium Total Bilirubin AST ALT Alkaline Phosphatase Troponin I < 0.03 0.03 < 0.03 01/03/18 01/03/18 01/03/18 02:57 02:57 02:57 WBC 10.7 Hgb 11.0 L Hct 34.3 L Plt Count 226 INR 1.0 APTT 27.3 Sodium Potassium Chloride Carbon Dioxide BUN Creatinine Glucose Calcium Magnesium Total Bilirubin AST ALT Alkaline Phosphatase Troponin I < 0.03 01/03/18 02:57 WBC Hgb Hct Plt Count INR APTT Sodium 136 Potassium 3.7 Chloride 105 Carbon Dioxide 22 L BUN 18 Creatinine 0.71 Glucose 270 H Calcium 9.0 Magnesium 1.8 Total Bilirubin 0.2 L AST 12 L ALT 20 Alkaline Phosphatase 94 Troponin I Chest X-Ray 01/02/18 09:36 IMPRESSION: No acute process. D/ / Sam Quintanilla MD / Sam Quintanilla MD Interpreting Provider: Sam Quintanilla MD Pulmonary Perfusion Imaging 01/02/18 13:23 IMPRESSION: Low Probability for Pulmonary Embolus. D/ / Shaggy Huizar MD / Shaggy Huizar MD Interpreting Provider: Shaggy Huizar MD - Imaging and Cardiology Echo: report reviewed Cardiac cath: report reviewed - EKG Interpretation EKG results cardiology: personally reviewed Consult Discharge Plan - Plan Instructions: Chest Pain (DC), Diabetes Mellitus Type 2 in Adults (DC), Chronic Hypertension (DC) Referrals: Oumar Wood MD [Primary Care Provider] - 01/11/18 10:15 am Prescriptions: Carvedilol 3.125 mg PO BID #30 tablet Isosorbide MONOnitrate (24 HR) [Imdur] 30 mg PO DAILY #30 tab.er.24h <Isidoro Gamble - Last Filed: 01/08/18 19:13> Date of Encounter: 01/03/18 Time of Encounter: 19:00 - Attending Attestation I have personally performed a face to face evaluation on this patient. I have reviewed and agree with the care plan. History and Exam by me shows: CC: chest pain Pt presents for evaluation of chest pain, mid sternal, onset at rest, lasted at least fifteen minutes, did not resolve with single sublingual nitroglycerin. Pt reports chest pain similar to previous anginal equilavent. Pt is pain free at present. PMHx: reviewed PE: pt seen and evaluated, agree with findings as documented. IMP: 1. Chest pain: atypical chest pain, reproducible to palpation, troponins negative x 4. Will order echo to eval for new wall motion abnormalites, add long acting nitrate. 2. BP - poorly controlled, increase Coreg Further recomendations pending cardiac imaging, will follow with you. Assessment and Plan Discussion w patient/family: The assessment and plan as outlined above was discussed with the patient and/or family members who expressed understanding and agreement. All questions were answered. Thank you for involving us in the care of your patient. Please call with any questions. History of Present Illness History of present illness: Ms. Aayush Kaufman is a 57 year old female All Systems Review: The remainder of the systems were reviewed and are negative Results 01/04/18 03:20 01/04/18 03:20
[2018-01-03] MEDS: Isosorbide MONOnitrate (24 HR) 30 MG TAB.ER.24H PO SCH (12:51)
--- NOTE | 2018-01-03 17:08 | Electrocardiograph Report ---
[address] [place] [address] Test Date: 2018-01-02 Pat Name: Chayo Looney [facility] Department: 104 Room: 3B21 Gender: F [employer]: AM : 1960 Requested By: Jasson Alonso Order Number: [id number] Reading MD: Priti See Measurements Intervals [place] Rate: 75 P: -2 MN: 183 QRS: -33 QRSD: 99 T: 66 QT: 366 QTc: 395 Interpretive Statements SINUS RHYTHM MARKED LEFT AXIS DEVIATION VOLTAGE CRITERIA FOR LVH POSSIBLE ANTEROSEPTAL MYOCARDIAL INFARCTION, OF INDETERMINATE AGE Electronically Signed On 01-03-2018 17:06:21 EDT by Priti See
[2018-01-03] MEDS ORDERED: Acetaminophen 325 MG TABLET PO ONE (18:02)
[2018-01-03] MEDS: *HR* HYDROcodone/Acet 5/325 mg TABLET PO PRN (18:12)
--- NOTE | 2018-01-03 18:12 | Internal Med Progress Note ---
Date of Encounter: 01/03/18 Time of Encounter: 15:00 - Assessment and plan (1) Chest pain Current Visit: Yes Status: Acute Assessment and plan: Currently denies any chest pain -chest pain symptoms reproducible on exam Troponins have been negative 4 EKG without any acute ST changes Awaiting echo results. Cardiology recommending if no acute changes continue medical management with better blood pressure control recommended. Cardiology recommending adding low dose Imdur Cardiology has been consult and appreciate recommendations (2) CAD (coronary artery disease) Current Visit: Yes Status: Acute Assessment and plan: Patient has a history of [place] with PCI OCTAVIANO to LAD 08/2017.-[facility] 09/09 99% stenosis mid LAD. Currently in cardiac rehabilitation exercising without chest pain TTE 11/08/17 EF 60% with mild MR mild TR Continue with aspirin and Plavix statin and beta faizan. We will add Imdur per cardiology recommendations. Qualifiers: Coronary Disease-Associated Artery/Lesion type: [place] artery [place] vs. transplanted heart: [place] heart Associated angina: angina presence unspecified Qualified Code(s): I25.10 - Atherosclerotic heart disease of [place] coronary artery without angina pectoris (3) DM type 2 (diabetes mellitus, type 2) Current Visit: No Status: Chronic Assessment and plan: Accu-Cheks before meals at bedtime with sliding scale insulin Diabetic diet (4) Left leg swelling Current Visit: Yes Status: Acute Assessment and plan: Bedside ultrasound negative for DVT by emergency department. She currently denies pain, no signs of cellulitic changes.-We will continue to monitor (5) DVT prophylaxis Current Visit: Yes Status: Acute Assessment and plan: 1 encouraged patient to ambulate - Time Spent With Patient Total time spent is greater than 50% in coordination of care (as documented) at patient's floor/unit and/or counseling patient: - Subjective Interval history: 1 this patient is new to me I did review the records. I did examine the patient at the bedside. Patient voicing frustration concerning having to wait for echo to be completed. Denies any chest pain at this time - Constitutional Vitals: Temp Pulse Resp BP Pulse Ox 98.0 F 79 18 113/69 97 01/03/18 15:32 01/03/18 15:32 01/03/18 15:32 01/03/18 15:32 01/03/18 15:32 General appearance: Present: A&O X 3, obese - Head Head exam: Present: atraumatic, normocephalic - Eye Eye exam: Present: PERRL, conjuntiva pink, sclera anicteric Pupils: Present: PERRL - Neck Neck exam general surgery: Present: supple, trachea midline. Absent: lymphadenopathy - Respiratory Respiratory exam: Present: CTAB. Absent: accessory muscle use, rales, rhonchi, wheezes - Cardiovascular Cardiovascular exam: Present: RRR, +S1, +S2. Absent: diastolic murmur, gallop, rubs, systolic murmur - GI/Abdominal GI/Abdominal exam: Present: normal bowel sounds, soft, no peritoneal signs. Absent: distended, tenderness - Extremities Exam Extremities exam: Present: warm, radial pulses palpable and symmetrical. Absent : calf tenderness, cyanotic, pedal edema - Neurological Exam Neurological exam: Present: CN II-XII intact, oriented X3, no focal deficits. Absent: pronater drift, facial droop, speech deficit - Skin Skin exam: Present: dry, intact Internal Medicine: Result - Labs CBC & Chem 7: 01/03/18 02:57 01/03/18 02:57 Labs: Short CBC 01/03/18 Range/Units 02:57 WBC 10.7 (4.3-11.1) K/mcL Hgb 11.0 L (11.5-15.4) g/dL Hct 34.3 L (35.3-44.9) % Plt Count 226 (140-400) K/mcL Neutrophils # 8.3 (1.6-8.9) K/mcL BMP 01/03/18 02:57 Sodium 136 Potassium 3.7 Chloride 105 Carbon Dioxide 22 L BUN 18 Creatinine 0.71 Glucose 270 H Calcium 9.0 Cardiac Enzymes 01/02/18 01/03/18 01/03/18 Range/Units 21:12 02:57 02:57 Troponin I 0.03 < 0.03 < 0.03 (< 0.04) ng/mL Liver Function 01/03/18 Range/Units 02:57 Total Bilirubin 0.2 L (0.3-1.0) mg/dL AST 12 L (13-39) Units/L ALT 20 (7-52) Units/L Alkaline Phosphatase 94 (34-104) Units/L Albumin 3.7 (3.5-5.7) g/dL - ABG Interpretation ABG results: PT/INR, D-dimer PT 11.1 Seconds (9.4-12.1) 01/03/18 02:57 D-Dimer 820 ng/mLFEU (0-500) H 01/02/18 09:54 Consult Discharge Plan - Plan Referrals: Oumar Wood MD [Primary Care Provider] -
[2018-01-03] MEDS ORDERED: Insulin DETEMIR 100 UNIT/ML X5UNITS SQ SCH (21:00)
[2018-01-03] MEDS: Aspirin 81 MG TAB.CHEW PO SCH (21:38)
[2018-01-04 04:27] LABS: Basophils # 0.1 K/mcL (0.0-0.2); Basophils % 0.6 %; Eosinophils # 0.3 K/mcL (0.0-0.6); Eosinophils % 3.2 %; Hematocrit 33.3 % (35.3-44.9); Hemoglobin 10.8 g/dL (11.5-15.4); Immature Granulocytes % 0.4 % (0-4); Mean Corpuscular HGB Conc 32.4 g/dL (31.6-35.5); Mean Corpuscular Hemoglobin 28.3 pg (28.0-33.3); Mean Corpuscular Volume 87.2 fL (83.0-100.0); Mean Platelet Volume 10.2 fL (9.4-12.4); Monocytes # 0.6 K/mcL (0.0-1.3); Monocytes % 7.6 %; Neutrophils # 3.9 K/mcL (1.6-8.9); Platelet Count 213 K/mcL (140-400); Red Blood Count 3.82 M/mcL (3.82-4.97); Red Cell Distribution Width 15.1 % (11.5-14.5); Segmented Neutrophils % 50.2 %
[2018-01-04 04:46] LABS: BUN/Creatinine Ratio 28 (6-26); Blood Urea Nitrogen 18 mg/dL (6-20); Calcium 8.7 mg/dL (8.6-10.3); Carbon Dioxide 23 mEq/L (23-29); Chloride 107 mEq/L (98-107); Glucose 188 mg/dL (70-105); Osmolality,Calculated 293 (280-300); Potassium 3.6 mEq/L (3.5-5.1); Sodium 138 mEq/L (136-145); eGFR For African Americans > 60 (> 60); eGFR For Non-African Americans > 60 (> 60)
[2018-01-04] MEDS: Furosemide 20 MG TABLET PO SCH (08:23)
[2018-01-04] MEDS: Isosorbide MONOnitrate (24 HR) 30 MG TAB.ER.24H PO SCH (08:23)
[2018-01-04] MEDS: Pantoprazole 40 MG VIAL IVP SCH (08:24)
[2018-01-04] MEDS: Insulin LISPRO 300 UNITS/3 ML VIAL SQ SCH ×2 (08:40→13:46)
--- NOTE | 2018-01-04 11:12 | Cardiology Progress Note ---
Date of Encounter: 01/04/18 Time of Encounter: 11:10 Assessment and Plan (1) Chest pain Current Visit: Yes Status: Acute Atypical chest pain symptoms reproducible on exam. Reports pain similar to previous [place]. Currently in cardiac rehab exercising without chest pain. Troponin negative x4. EKG without acute ST changes. Currently pain free. Limited TTE shows preserved EF. Continue medical management. Imdur added. Qualifiers: Chest pain type: unspecified Qualified Code(s): R07.9 - Chest pain, unspecified (2) CAD (coronary artery disease) Current Visit: Yes Status: Acute H/o MN and PCI to the LAD 08/2017. [facility] 08/2017- 99% stenosis mLAD. PTCA and OCTAVIANO placed with good results. 50% stenosis in the 1st OM remaining. EF 35%. TTE 11/08/17- EF 60%, mild MR, mild TR. Continue asa, plavix , statin, and bb. Add imdur. Qualifiers: Coronary Disease-Associated Artery/Lesion type: [place] artery [place] vs. transplanted heart: [place] heart Associated angina: angina presence unspecified Qualified Code(s): I25.10 - Atherosclerotic heart disease of [place] coronary artery without angina pectoris (3) Hypertension Current Visit: Yes Status: Acute Uncontrolled b/p. Increase carvedilol, b/p improving. Qualifiers: Hypertension type: essential hypertension Qualified Code(s): I10 - Essential (primary) hypertension Discussion w patient/family: The assessment and plan as outlined above was discussed with the patient and/or family members who expressed understanding and agreement. All questions were answered. Thank you for involving us in the care of your patient. Please call with any questions. Subjective Principal diagnosis: Chest pain Interval history: Reports reproducible chest pain improved. Patient is agitated this morning due to not having echocardiogram test results. Objective Vital Signs, Last 4 Hours Temp Pulse Resp BP Pulse Ox 01/04/18 11:05 97.8 F 74 16 135/69 95 01/04/18 07:41 98.1 F 82 18 170/85 97 General: Conversant, No Apparent Distress HEENT: Atraumatic, Normocephaly, Mucus Membranes Moist Neck: No JVD, Normal carotid pulses Cardiac: Reg Rate and Rhythm, Normal S1 and S2, No Murmur Lungs: Normal Breath Sounds, No Wheeze, Rales, Rhonchi Neuro: Alert and responsive, No focal deficits noted Abdomen: Soft, Non-Tender Skin: No rashes noted on visualized skin Musculoskeletal: No Chest Wall Tenderness, Other (Reproducible chest wall pain. ) Extremities: No Clubbing, No Cyanosis, No Edema, Normal Pulses Results 01/04/18 03:20 01/04/18 03:20 Lab Results 01/04/18 01/04/18 03:20 03:20 WBC 7.8 Hgb 10.8 L Hct 33.3 L Plt Count 213 Sodium 138 Potassium 3.6 Chloride 107 Carbon Dioxide 23 BUN 18 Creatinine 0.64 Glucose 188 H Calcium 8.7 - Imaging and Cardiology Echo: pending - EKG Interpretation EKG results cardiology: personally reviewed Consult Discharge Plan - Plan Referrals: Oumar Wood MD [Primary Care Provider] - 01/11/18 10:15 am
[2018-01-04] MEDS: *HR* HYDROcodone/Acet 5/325 mg TABLET PO PRN (13:45)
--- NOTE | 2018-01-04 14:53 | Discharge Summary ---
- NOTES TO OUTPATIENT PROVIDER Notes to Outpatient Provider: Placed on Imdur per cardiology, carvedilol increased per cardiology Date of Encounter: 01/04/18 Time of Encounter: 14:49 - Discharge Diagnosis (1) Chest pain Priority: Primary Status: Acute Comments: Cardiology recommending continued medical management added Imdur continue with cardiac rehabilitation follow-up with PCP and communications programmer (2) CAD (coronary artery disease) Priority: Secondary Status: Acute Comments: Continue with aspirin and Plavix statin beta faizan added Imdur Qualifiers: Coronary Disease-Associated Artery/Lesion type: [place] artery [place] vs. transplanted heart: [place] heart Associated angina: angina presence unspecified Qualified Code(s): I25.10 - Atherosclerotic heart disease of [place] coronary artery without angina pectoris (3) DM type 2 (diabetes mellitus, type 2) Priority: Secondary Status: Chronic Comments: Continue home medications (4) Left leg swelling Priority: Secondary Status: Acute (5) Hypertension Priority: Secondary Status: Acute Comments: Carvedilol increased per cardiology Qualifiers: Hypertension type: essential hypertension Qualified Code(s): I10 - Essential (primary) hypertension Hospital course: Ms. Aayush Kaufman is a 57 year old female Past medical history of STEMI status post PCI to the LAD in August 2017 ischemic cardiomyopathy that resolved diabetes type 2 hypertension hyperlipidemia. Patient originally presented to [facility] ER with complaints of pain radiating from midclavicular to midsternum pain occurred at rest she took 1 nitroglycerin without any relief her pain was similar to previous [place]. Troponins have been negative 4 EKG with no acute ST changes. Chest x-ray with no acute process. Cardiology was consulted check limited TTE which showed preserved EF advising to continue medical management. Cardiology did add Imdur as well as increasing carvedilol. Advised outpatient follow-up with cardiology and PCP as outpatient. Presently patient's lab work is stable. Hemodynamically she is stable. I did review results of the limited echo with the patient advised patient to follow-up with primary care provider since this provider knows her best and can adjust medications as needed. Also advised her to follow-up with cardiology. Patient verbalized understanding. I also reviewed patient's medications again patient verbalized understanding. She is hemodynamically stable and ready to be discharged. Discharge discussed with: patient - Time Spent with Patient Total time spent providing and/or coordinating discharge services: - Discharge Medications Prescriptions: Carvedilol 3.125 mg PO BID #30 tablet Isosorbide MONOnitrate (24 HR) [Imdur] 30 mg PO DAILY #30 tab.er.24h Home Medications: Cyclobenzaprine HCl 5 mg PO TID PRN #30 tablet 02/15/16 [Rx] Escitalopram [Lexapro] 10 mg PO DAILY 02/15/16 [History] Insulin ASPART [Novolog] 15 unit SQ TIDAC 02/15/16 [History] BuPROPion [Wellbutrin] 100 mg PO DAILY 10/30/16 [History] Fenugreek Seed Extract [Fenugreek] 500 mg PO DAILY 10/30/16 [History] HYDROcodone/Acet 5/325 mg [[place] 5-325 mg] 1 tab PO Q6H PRN 10/30/16 [History] Candesartan Cilexetil [Atacand] 4 mg PO DAILY 12/06/16 [History] Aspirin 81 mg PO DAILY tab.chew 09/09/17 [Rx] Atorvastatin [Lipitor] 40 mg PO HS #30 tablet 09/09/17 [Rx] Clopidogrel [Plavix] 75 mg PO DAILY 10/09/17 [History] Empagliflozin [Jardiance] 20 mg PO DAILY 10/09/17 [History] Fluconazole [Diflucan] 50 mg PO PRN PRN 10/09/17 [History] Insulin Glargine,Hum.rec.anlog [Basaglar Kwikpen U-100] 55 - 70 unit SQ HS 10/09 [History] Iron Fum,Ps No.1/Vit C/L.casei [Fusion Capsule] 1 each PO DAILY 10/09/17 [ History] valACYclovir [Valtrex] 500 mg PO DAILY PRN 10/09/17 [History] Furosemide [Lasix] 20 mg PO DAILY 10/22/17 [History] Nitroglycerin 0.4 mg SL Q5M PRN 01/02/18 [History] Carvedilol 3.125 mg PO BID #30 tablet 01/04/18 [Rx] Isosorbide MONOnitrate (24 HR) [Imdur] 30 mg PO DAILY #30 tab.er.24h 01/04/18 [ Rx] Allergies/Adverse Reactions: 3 Allergy/AdvReac Type Severity Reaction Status Date / Time Amoxicillin [From Amoxil] Allergy Rash Verified 01/02/18 12:48 clavulanic acid Allergy Hives Verified 01/02/18 12:48 [From Augmentin] iodine Allergy Rash Verified 01/02/18 12:48 pentazocine [From Talwin] Allergy Rash Verified 01/02/18 12:48 Date of admission: 01/02/18 13:43 Primary care physician: Oumar Wood MD Consults: 01/02/18 18:22 Consult to Cardiology [CONS] Routine Comment: Consulting Provider: Cardiology [place] Reason for Consult: chest pain Call Completed: No 01/03/18 03:07 Consult to Cardiology [CONS] Routine Comment: Consulting Provider: Cardiology [place] Reason for Consult: chest pain , known to Dr. Gamble Call Completed: No Discharging clinician: Melody Brown Anticipated date of discharge: 01/04/18 - Constitutional Vitals: Temp Pulse Resp BP Pulse Ox 97.8 F 74 16 135/69 95 01/04/18 11:05 01/04/18 11:05 01/04/18 11:05 01/04/18 11:05 01/04/18 11:05 General appearance: Present: A&O X 3, obese - Head Head exam: Present: atraumatic, normocephalic - Eye Eye exam: Present: PERRL, conjuntiva pink, sclera anicteric Pupils: Present: PERRL - Neck Neck exam general surgery: Present: supple, trachea midline. Absent: lymphadenopathy - Respiratory Respiratory exam: Present: CTAB. Absent: accessory muscle use, rales, rhonchi, wheezes - Cardiovascular Cardiovascular exam: Present: RRR, +S1, +S2. Absent: diastolic murmur, gallop, rubs, systolic murmur - GI/Abdominal GI/Abdominal exam: Present: normal bowel sounds, soft, no peritoneal signs. Absent: distended, tenderness - Extremities Exam Extremities exam: Present: warm, radial pulses palpable and symmetrical. Absent : calf tenderness, cyanotic, pedal edema - Neurological Exam Neurological exam: Present: CN II-XII intact, oriented X3, no focal deficits. Absent: pronater drift, facial droop, speech deficit - Skin Skin exam: Present: dry, intact - Patient Status Disposition: Home, Self-Care Condition: Fair Functional capacity at discharge: independent ambulation Overall status at discharge: patient is back to baseline - Discharge Instructions Instructions: Chest Pain (DC), Diabetes Mellitus Type 2 in Adults (DC), Chronic Hypertension (DC) Follow Up With: Oumar Wood MD [Primary Care Provider] - 01/11/18 10:15 am Forms: Work/School Release - Diet and Activity Activity: increase activity as tolerated Diet: diabetic diet, low fat, low cholesterol, low salt diet
[2018-01-04 15:05] VITALS: BP 117/68
== END 2018-01-04 15:40 | disposition home or self-care (01) ==
LOC: 3BNU 09:25 → EMEROO 09:25 → 3BNU 15:04
PROVIDERS: ADMIT Internal Medicine; ATTEND Registered Nurse